=== PATIENT | female | born 1960 | race Caucasian/White ===

== ENCOUNTER 2021-04-23 22:04 | Inpatient (IN) | payer MEDICARE, MEDICAID ==
[~2021-04-23] VITALS: Ht 170.2 cm; Wt 97.7 kg
[2021-04-24 00:44] LABS: PLATELET COUNT 166 X10'3 (140-440)
[2021-04-24 00:46] LABS: BASOPHILS % (AUTO) 0.3 % (0-1); EOSINOPHILS % (AUTO) 0 % (0-6); HEMOGLOBIN 9.9 g/dl (12.0-16.0); LYMPHOCYTES # (AUTO) 0.2 X10'3 (1.1-4.8); LYMPHOCYTES % (AUTO) 3.8 % (21-51); MEAN CORPUSCULAR HEMOGLOBIN 31.3 PG (27.0-31.0); MEAN CORPUSCULAR HGB CONC 33.1 g/dL (33.0-36.5); MEAN CORPUSCULAR VOLUME 94.5 FL (78-98); MEAN PLATELET VOLUME 7.9 FL (7.4-10.4); MONOCYTES # (AUTO) 0.2 X10'3 (0-0.9); NEUTROPHILS # (AUTO) 5.5 X10'3 (1.8-7.7); NEUTROPHILS % (AUTO) 91.9 % (42-75); RED BLOOD COUNT 3.17 X10'6 (4.20-5.60); RED CELL DISTRIBUTION WIDTH 17.4 % (11.5-14.5)
[2021-04-24 00:53] LABS: ALBUMIN 2.3 G/DL (3.4-5.0); ANION GAP 21 (8-16); BLOOD UREA NITROGEN 62 MG/DL (7-18); BUN/CREATININE RATIO 6.7 (6.6-38.0); CALCIUM 7.1 MG/DL (8.5-10.1); CHLORIDE 87 MMOL/L (99-107); CREATININE 9.31 MG/DL (0.40-0.90); GLUCOSE 136 MG/DL (70-104); SODIUM 128 MMOL/L (135-145); TOTAL CARBON DIOXIDE 19.7 MMOL/L (24-32); eGFR 4 ML/MIN
[2021-04-24 01:00] LABS: D-DIMER 0.77 MG/L FEU (0-0.50)
[2021-04-24 01:10] LABS: C-REACTIVE PROTEIN 33.01 MG/DL (0.0-0.5)
[2021-04-24 01:13] LABS: POTASSIUM 6.6 MMOL/L (3.5-5.1)
[2021-04-24] MEDS ORDERED: diphenhydrAMINE 25mg capsule PO PRN (02:05)
[2021-04-24] MEDS ORDERED: ondansetron/PF 4mg/2ml inj IV PRN (02:05)
[2021-04-24] MEDS ORDERED: diphenhydrAMINE 50 mg/ml inj IV PRN (02:05)
[2021-04-24] MEDS ORDERED: ondansetron 4mg rapidly disintigrating tab PO PRN (02:05)
[2021-04-24] MEDS ORDERED: acetaminophen 650mg rectal suppository RC PRN (02:05)
[2021-04-24] MEDS ORDERED: morphine 2 MG/ML inj. syringe IV PRN (02:05)
[2021-04-24] MEDS ORDERED: bisacodyl 10mg suppository rectal RC PRN (02:05)
[2021-04-24] MEDS ORDERED: acetaminophen 325mg tablet PO PRN ×2 (02:05)
[2021-04-24] MEDS ORDERED: dextrose ORAL solution 15 GM/59 ML bottle PO PRN (02:10)
[2021-04-24] MEDS ORDERED: MESSAGE TO PHARMACY PO ONE (02:10)
[2021-04-24] MEDS ORDERED: ALBUTEROL INHALER 1 PUFF/90 MCG INHALER IH PRN (02:10)
[2021-04-24] MEDS ORDERED: dextrose 50%-water 50ml dispensing syringe IV ONE (02:10)
[2021-04-24] MEDS ORDERED: dextrose 50%-water 50ml dispensing syringe IV PRN ×2 (02:10)
[2021-04-24] MEDS ORDERED: CALCIUM GLUC 1gm/50ml NACL,iso 50 ML IV PRN (02:10)
[2021-04-24] MEDS ORDERED: insulin regular, human 10 units/0.1 ml syringe IV ONE (02:10)
[2021-04-24] MEDS ORDERED: glucagon, human recombinant 1mg kit SUBCUT PRN (02:10)
[2021-04-24] MEDS: normal saline 1000ml 1,000 ML IV SCH ×3 (02:59→22:05)
[2021-04-24 03:20] VITALS: BP 151/83
[2021-04-24 03:31] LABS: HEMOGLOBIN A1C 7.5 % (4.5-6.2)
[2021-04-24 03:36] LABS: MAGNESIUM 2.9 MG/DL (1.5-2.4); PHOSPHORUS 8.6 MG/DL (2.3-4.5)
--- NOTE | 2021-04-24 03:49 | NUR ---
RC'D REPORT FROM MIGUE CHIANG, RN AND ASSUMED CARE WHEN PATIENT ARRIVED ON THE FLOOR VIA GURNEY. TRANSFERRED HERSELF INTO THE BED. NOTED LLE IN WALKING CAST D/T FALL AND SURG THIS LAST WEEK. 4L N/C , SATS 94%. EDUCATED RETREADER LIGHT SYSTEM AND WITHIN REACH.
[2021-04-24 06:00] VITALS: BP 127/61
--- NOTE | 2021-04-24 06:31 | NUR ---
Problems reprioritized. Patient report given, questions answered & plan of care reviewed with EARLY SHIFT RN..
[2021-04-24] MEDS: dexamethasone 4mg/ml inj IV SCH ×3 (07:20→20:59)
[2021-04-24] MEDS: pantoprazole 40mg Tablet.DR PO SCH (07:20)
[2021-04-24] MEDS: enoxaparin 40mg/0.4ml syringe SUBCUT SCH ×2 (07:21→20:59)
[2021-04-24] MEDS ORDERED: SEVE800T8 PO (07:53)
[2021-04-24] MEDS ORDERED: ROSU10TA2 PO (07:53)
[2021-04-24] MEDS ORDERED: HYDR-3965 PO (07:53)
[2021-04-24] MEDS ORDERED: OMEP20TA23 PO (07:53)
[2021-04-24] MEDS ORDERED: CARV3.122 PO (07:53)
[2021-04-24] MEDS ORDERED: PROM25TA14 PO (07:53)
[2021-04-24] MEDS ORDERED: GLYB5TAB7 PO (07:53)
[2021-04-24] MEDS ORDERED: ALBU18HF2 INH (07:53)
[2021-04-24] MEDS ORDERED: TEMA15CA PO (07:53)
[2021-04-24] MEDS ORDERED: GABA300C PO (07:53)
[2021-04-24] MEDS ORDERED: ASPI-1265 PO (07:53)
[2021-04-24] MEDS ORDERED: LORA10TA7 PO (07:53)
[2021-04-24] MEDS ORDERED: CALC0.2511 PO (07:53)
[2021-04-24] MEDS ORDERED: WARF-65 PO (07:53)
[2021-04-24] MEDS ORDERED: DULO-31 PO (07:53)
[2021-04-24] MEDS ORDERED: FLUO20CA39 PO (07:53)
[2021-04-24] MEDS: docusate sod 100mg capsule PO SCH ×2 (08:00→20:00)
[2021-04-24] MEDS: CefTRIAXone/D5W-Rocephin 1gm 50 ML IV SCH (08:28)
[2021-04-24] MEDS: azithromycin/NS 500mg/250ml 250 ML IV SCH (08:28)
[2021-04-24 09:09] LABS: PARTIAL THROMBOPLASTIN TIME 107 SECONDS (22-32)
--- NOTE | 2021-04-24 09:10 | NUR ---
PAGER ID: [phone] MESSAGE: Armida Mendenhall [phone]: PTT [phone]
[2021-04-24 10:00] VITALS: BP 137/85
[2021-04-24] MEDS ORDERED: FLU VACC QS2021-22(6MOS UP)/PF 60 MCG/0.5 ML SYRINGE IM ONE (10:00)
[2021-04-24] MEDS ORDERED: pneumococcal 23-VAL P-sac vacc 25 mcg/0.5ml vial IMVAC ONE (10:00)
--- NOTE | 2021-04-24 10:41 | NUR ---
Pt admit for bilateral PNA secondary to COVID-19 and acute respiratory failure with hypoxia. Noted pt with A1c 7.5%, per EMR with h/o "prediabetes" and takes Glyburide. Pt will need official DM dx by physician prior to RD being able to provide DM education. Attempted TC to RN however RN unavailable, message left with another RN regarding current A1c. Pt currently NPO. Recommend diet advancement to renal CHO controlled as medically indicated. [facility] 04/23. Will continue to follow closely. Recommendations: 1) Advance to renal CHO controlled diet as medically indicated; only renal diet if BG levels well controlled, current range 136-165 mg/dL 2) Monitor need for ONS/additional protein with diet advancement 3) Bowel care per rx 4) Scaled weight this admit; weekly scaled weights thereafter 5) Once pt stable, DM education following official DM dx by physician, A1c 7.5% with [facility] "prediabetes". Takes Glyburide per EMR Addendum: 04/24/21 at [address] Amended: Links added.
--- NOTE | 2021-04-24 12:00 | NUR ---
Dr Abarca notified that the patient is supposed to recieve dialysis today
[2021-04-24] MEDS: insulin Lispro (HumaLOG) vial - multi-dose SQ SCH (13:41)
[2021-04-24 14:00] VITALS: BP 138/79
--- NOTE | 2021-04-24 17:02 | NUR ---
PAGER ID: [phone] MESSAGE: [phone] Armida Mendenhall: Patient has coughed up bloody sputum 3x in the last hour with increased shortness of breath
[2021-04-24] MEDS ORDERED: EPOETIN ALFA-EPBX 20,000 UNIT/ML 1 ML MDV IV ONE (17:25)
[2021-04-24] MEDS ORDERED: normal saline 1000ml 250 ML IV PRN (17:25)
[2021-04-24] MEDS: HYDROcodone/acetaminophen 10/325mg tab PO PRN (17:25)
[2021-04-24] MEDS ORDERED: heparin 1,000 units/ml 10ml inj IV ONE (17:25)
[2021-04-24] MEDS ORDERED: LIDOcaine 1% (10mg/ml) 2ml vial SQ ONE (17:25)
[2021-04-24 17:54] LABS: HEMATOCRIT 30.3 % (35.0-45.0); HEMOGLOBIN 9.8 g/dl (12.0-16.0); MEAN CORPUSCULAR HEMOGLOBIN 30.3 PG (27.0-31.0); MEAN CORPUSCULAR HGB CONC 32.3 g/dL (33.0-36.5); MEAN PLATELET VOLUME 7.9 FL (7.4-10.4); PLATELET COUNT 180 X10'3 (140-440); RED BLOOD COUNT 3.22 X10'6 (4.20-5.60); RED CELL DISTRIBUTION WIDTH 17.9 % (11.5-14.5)
[2021-04-24 18:00] VITALS: BP 115/72
[2021-04-24] MEDS: morphine 2 MG/ML inj. syringe IV PRN (18:31)
[2021-04-24] MEDS: lactobacillus rhamnosus 10,000 MMU CELLS/CAPSULE PO SCH (20:59)
[2021-04-24] MEDS: insulin glargine (Lantus) pen - multi-dose SQ SCH (21:00)
[2021-04-24 22:00] VITALS: BP 110/65
[2021-04-24] MEDS ORDERED: diltiazem 5mg/ml 5ml inj. IV ONE (23:30)
[2021-04-25] MEDS: temazepam 15mg capsule PO PRN (01:20)
[2021-04-25] MEDS: morphine 2 MG/ML inj. syringe IV PRN ×2 (01:20→22:36)
[2021-04-25 01:25] LABS: ALANINE AMINOTRANSFERASE 19 U/L (12-78); ALBUMIN 2.6 G/DL (3.4-5.0); ALBUMIN/GLOBULIN RATIO 0.5 (1.1-1.5); ALKALINE PHOSPHATASE 126 IU/L (46-116); ANION GAP 17 (8-16); ASPARTATE AMINO TRANSFERASE 27 U/L (10-37); BILIRUBIN,TOTAL 0.4 MG/DL (0.1-1.0); BLOOD UREA NITROGEN 19 MG/DL (7-18); BUN/CREATININE RATIO 6.3 (6.6-38.0); CALCIUM 8.5 MG/DL (8.5-10.1); CHLORIDE 97 MMOL/L (99-107); CHOL/HDL RATIO 2.9 (0.00-4.99); CHOLESTEROL 128 MG/DL (0-200); GLUCOSE 134 MG/DL (70-104); HDL CHOLESTEROL 44 MG/DL (35-60); LDL CHOLESTEROL 48 MG/DL (50-100); POTASSIUM 3.7 MMOL/L (3.5-5.1); SODIUM 139 MMOL/L (135-145); TOTAL CARBON DIOXIDE 24.8 MMOL/L (24-32); TOTAL PROTEIN 7.4 G/DL (6.4-8.2); TRIGLYCERIDES 185 MG/DL (20-135); eGFR 16 ML/MIN
[2021-04-25 01:27] VITALS: BP 94/64
[2021-04-25] MEDS ORDERED: diltiazem 5mg/ml 5ml inj. IV ONE (01:40)
[2021-04-25 02:00] VITALS: BP 85/56
[2021-04-25] MEDS: normal saline 1000ml 1,000 ML IV SCH (02:31)
[2021-04-25] MEDS: dexamethasone 4mg/ml inj IV SCH ×4 (02:47→20:27)
--- NOTE | 2021-04-25 06:15 | NUR ---
Problems reprioritized. Patient report given, questions answered & plan of care reviewed with Mariya VEGA.
--- NOTE | 2021-04-25 06:37 | NUR ---
Patient in room ORTHO 4009. I have received report from Marni VEGA and had the opportunity to ask questions and assume patient care.
[2021-04-25 06:56] VITALS: BP 117/57
--- NOTE | 2021-04-25 07:04 | NUR ---
PAGER ID: [phone] MESSAGE: [phone], Mendenhall please address patients med rec, was admitted 04/24 and takes cardiac medications; went into afib with RVR last night and required cardizem iv push. Thanks hayley [phone]
[2021-04-25] MEDS: enoxaparin 40mg/0.4ml syringe SUBCUT SCH ×2 (07:17→20:00)
[2021-04-25] MEDS: CefTRIAXone/D5W-Rocephin 1gm 50 ML IV SCH (07:17)
[2021-04-25] MEDS: lactobacillus rhamnosus 10,000 MMU CELLS/CAPSULE PO SCH ×2 (07:18→20:27)
[2021-04-25] MEDS: pantoprazole 40mg Tablet.DR PO SCH (07:18)
[2021-04-25] MEDS: azithromycin/NS 500mg/250ml 250 ML IV SCH (07:18)
[2021-04-25] MEDS: docusate sod 100mg capsule PO SCH ×2 (07:28→20:00)
[2021-04-25 08:29] LABS: BASOPHILS % (AUTO) 0.1 % (0-1); EOSINOPHILS % (AUTO) 0 % (0-6); HEMATOCRIT 29.7 % (35.0-45.0); HEMOGLOBIN 9.4 g/dl (12.0-16.0); LYMPHOCYTES # (AUTO) 0.1 X10'3 (1.1-4.8); MEAN CORPUSCULAR HEMOGLOBIN 30.5 PG (27.0-31.0); MEAN CORPUSCULAR HGB CONC 31.7 g/dL (33.0-36.5); MEAN CORPUSCULAR VOLUME 96.2 FL (78-98); MEAN PLATELET VOLUME 8.1 FL (7.4-10.4); MONOCYTES # (AUTO) 0.3 X10'3 (0-0.9); MONOCYTES % (AUTO) 4.4 % (2-12); NEUTROPHILS # (AUTO) 5.3 X10'3 (1.8-7.7); NEUTROPHILS % (AUTO) 93.5 % (42-75); PLATELET COUNT 180 X10'3 (140-440); RED BLOOD COUNT 3.08 X10'6 (4.20-5.60); RED CELL DISTRIBUTION WIDTH 18.1 % (11.5-14.5); WHITE BLOOD COUNT 5.7 X10'3 (4.5-11.0)
[2021-04-25 08:39] LABS: D-DIMER 0.44 MG/L FEU (0-0.50)
[2021-04-25] MEDS: HYDROcodone/acetaminophen 5mg/325mg tablet PO PRN ×2 (09:13→14:00)
[2021-04-25] MEDS: insulin Lispro (HumaLOG) vial - multi-dose SQ SCH ×3 (09:21→20:45)
--- NOTE | 2021-04-25 10:33 | NUR ---
Hospitalist has been paged x2 regarding patients med rec that has yet to be addressed. Patient is on many important medications and has been admitted since 04/24.
[2021-04-25] MEDS ORDERED: ALBUTEROL INHALER 1 PUFF/90 MCG INHALER IH PRN (10:45)
[2021-04-25] MEDS ORDERED: aspirin 81mg tab.chew PO SCH (10:45)
[2021-04-25 11:45] VITALS: BP 110/67
[2021-04-25] MEDS: loratadine 10mg tablet PO SCH (14:00)
[2021-04-25] MEDS: FLUoxetine 20mg capsule PO SCH (14:00)
[2021-04-25] MEDS: gabapentin 300mg capsule PO SCH ×2 (14:00→20:27)
[2021-04-25] MEDS: proMETHazine 25mg tablet PO SCH ×2 (14:00→20:00)
[2021-04-25] MEDS: duloxetine 30mg CAPSULE.DR PO SCH (14:00)
[2021-04-25] MEDS: sevelamer carbonate 800mg tablet PO SCH (16:00)
--- NOTE | 2021-04-25 17:03 | NUR ---
PAGER ID: [phone] MESSAGE: [phone], Mendenhall patient just coughed up a quarter sized blood clot. Been receiving lovenox and coumadin to restart tonight chaparro hardy [phone]
--- NOTE | 2021-04-25 17:13 | NUR ---
PAGER ID: [phone] MESSAGE: [id number], coughed up 2 blood clots and a lot of blood tinged sputum, d dimer is fine but patient has not had a ct scan, don't know if you want one. hayley [phone]
--- NOTE | 2021-04-25 17:33 | NUR ---
PAGER ID: [phone] MESSAGE: [phone], Mendenhall CT is saying that we wont see clots on a ct scan without contrast and is suggesting a nuc med scan to evaluate for clots. hayley [phone]
[2021-04-25 18:00] VITALS: BP 94/66
--- NOTE | 2021-04-25 18:41 | NUR ---
Problems reprioritized. Patient report given, questions answered & plan of care reviewed with Stephanie VEGA.
[2021-04-25] MEDS ORDERED: HYDROcodone/acetaminophen 5mg/325mg tablet PO SCH (20:00)
[2021-04-25] MEDS: carVEDilol 3.125mg tablet PO SCH (20:27)
[2021-04-25 22:00] VITALS: BP 126/87
[2021-04-25] MEDS: insulin glargine (Lantus) pen - multi-dose SQ SCH (22:27)
--- NOTE | 2021-04-26 00:11 | NUR ---
REPORTING OFF RNLUIS ALBERTO OBTAINED A BLOODY SPUTUM SAMPLE AND TOOK IT TO THE LAB AT CHANGE OF SHIFT. RC'D CALL FROM LAB REQUESTING AN ORDER FOR CYTOLOGY SAMPLE LOOKED TO BE TISSUE. CALLED DR. GARCIA AT 2030 AND RC'D ORDER FOR CYTOLOGY. ALSO INFORMED HIM PATIENT IS CONTINUING TO HAVE BLOODY SPUTUM AND FROM HER NOSE. REQUESTING TO HOLD COUMADIN AND LOVENOX TONIGHT AND REC'D ORDER TO DO SO. INSULIN COVERAGE GIVEN LATE FOR DINNER BS, WILL CHECK HS BS IN A WHILE AND COVER WITH LANTUS ORDERED. GFR IS 16 SO ONLY HALF A DOSE OF 6 UNITS WILL BE GIVEN. NOTIFIED CT I WILL BE BRINGING PATIENT DOWN IN A W/C SOON FOR CHEST CT.
[2021-04-26] MEDS: HYDROcodone/acetaminophen 10/325mg tab PO PRN ×2 (00:53→17:16)
[2021-04-26] MEDS: temazepam 15mg capsule PO PRN (00:54)
[2021-04-26] MEDS: proMETHazine 25mg tablet PO SCH ×4 (02:00→22:04)
[2021-04-26] MEDS: dexamethasone 4mg/ml inj IV SCH ×4 (02:00→22:04)
[2021-04-26] MEDS ORDERED: oxymetazoline 15 ML nasal spray NS ONE (03:45)
[2021-04-26] MEDS ORDERED: phytonadione inj. 2 MG in normal saline 100ml IV soln 100 ML IV ONE (04:10)
[2021-04-26 05:24] LABS: ALANINE AMINOTRANSFERASE 13 U/L (12-78); ALBUMIN 2.2 G/DL (3.4-5.0); ALBUMIN/GLOBULIN RATIO 0.5 (1.1-1.5); ALKALINE PHOSPHATASE 101 IU/L (46-116); ANION GAP 12 (8-16); ASPARTATE AMINO TRANSFERASE 21 U/L (10-37); BILIRUBIN,TOTAL 0.3 MG/DL (0.1-1.0); BLOOD UREA NITROGEN 69 MG/DL (7-18); BUN/CREATININE RATIO 9.9 (6.6-38.0); CALCIUM 7.2 MG/DL (8.5-10.1); CHLORIDE 96 MMOL/L (99-107); CREATININE 6.97 MG/DL (0.40-0.90); GLUCOSE 246 MG/DL (70-104); POTASSIUM 5.7 MMOL/L (3.5-5.1); SODIUM 135 MMOL/L (135-145); TOTAL CARBON DIOXIDE 27.1 MMOL/L (24-32); TOTAL PROTEIN 6.4 G/DL (6.4-8.2); eGFR 6 ML/MIN
[2021-04-26 05:25] LABS: BASOPHILS % (AUTO) 0.1 % (0-1); EOSINOPHILS % (AUTO) 0 % (0-6); HEMOGLOBIN 8.7 g/dl (12.0-16.0); LYMPHOCYTES # (AUTO) 0.1 X10'3 (1.1-4.8); MEAN CORPUSCULAR HEMOGLOBIN 30.6 PG (27.0-31.0); MEAN CORPUSCULAR HGB CONC 32.3 g/dL (33.0-36.5); MEAN CORPUSCULAR VOLUME 94.6 FL (78-98); MEAN PLATELET VOLUME 8.1 FL (7.4-10.4); MONOCYTES # (AUTO) 0.2 X10'3 (0-0.9); NEUTROPHILS # (AUTO) 3.8 X10'3 (1.8-7.7); NEUTROPHILS % (AUTO) 91.9 % (42-75); PLATELET COUNT 197 X10'3 (140-440); RED BLOOD COUNT 2.85 X10'6 (4.20-5.60); RED CELL DISTRIBUTION WIDTH 17.9 % (11.5-14.5); WHITE BLOOD COUNT 4.1 X10'3 (4.5-11.0)
[2021-04-26 06:37] VITALS: BP 134/78
--- NOTE | 2021-04-26 06:53 | NUR ---
CONTINUED HAVING BLOODY SPUTUM AND NOSE BLEED, BUT IT DID SEEM TO SLOW DOWN FOR A PERIOD WHEN PATIENT WAS SLEEPING. PATIENT WOKE UP AND BROUGHT UP A VERY LARGE BLOODY CLOT FROM HER THROAT AND STATED "FEELS LIKE I HAVE MORE IN THERE". I CALLED DR. GARCIA ASKING HIM TO COME UP TO CHECK ON THIS PATIENT. HE HAD ME CALL THE MANAGER DECISION SUPPORT, DR. BENSON AND INFORM HIM OF WHAT WHAT HAPPENING WITH THIS PATIENT. DR. BENSON INFORMED ME THAT RADHA IS THE HOSPITALIST AND SHOULD DO HIS JOB AND TAKE CARE OF IT. PER DR. GARCIA, MATERIALS OBTAINED TO PACK THE PATIENT'S NOSE AFTER HE DETERMINED THE BLOOD IS ACTUALLY A NOSE BLEED. LABS ORDERED, SUCTION SET UP, PATIENT HAS HF N/C IN HER MOUTH BOTH NARES ARE PACKED TO STOP THE BLEEDING. INSTRUCTED TO LEAVE PACKING IN X24 HRS UNLESS OBVIOUS SIGNS OF BLEEDING ARE SEEN. TYPE AND SCREEN DONE WITH LABS AND 2 UNITS FFP AND VIT K ALSO ORDERED.
[2021-04-26] MEDS ORDERED: EPOETIN ALFA-EPBX 20,000 UNIT/ML 1 ML MDV IV ONE (07:25)
[2021-04-26] MEDS ORDERED: albumin (human) 25% 100ml IV 100 ML IV PRN (07:25)
[2021-04-26] MEDS: insulin Lispro (HumaLOG) vial - multi-dose SQ SCH (07:44)
[2021-04-26] MEDS: duloxetine 30mg CAPSULE.DR PO SCH (08:00)
[2021-04-26] MEDS: lactobacillus rhamnosus 10,000 MMU CELLS/CAPSULE PO SCH ×2 (08:00→22:04)
[2021-04-26] MEDS: FLUoxetine 20mg capsule PO SCH (08:00)
[2021-04-26] MEDS ORDERED: non-formulary drug (Omeprazole Magnesium (Prilosec Otc) 1 TAB) PO SCH (08:00)
[2021-04-26] MEDS ORDERED: non-formulary drug (Glyburide 1 TAB) PO SCH (08:00)
[2021-04-26] MEDS ORDERED: WARFARIN SODIUM PO SCH (08:00)
[2021-04-26] MEDS: atorvastatin 20mg tablet PO SCH (08:00)
[2021-04-26] MEDS: carVEDilol 3.125mg tablet PO SCH ×2 (08:00→22:04)
[2021-04-26] MEDS: loratadine 10mg tablet PO SCH (08:00)
[2021-04-26] MEDS: sevelamer carbonate 800mg tablet PO SCH ×3 (08:00→16:16)
[2021-04-26] MEDS: gabapentin 300mg capsule PO SCH ×2 (08:00→14:17)
[2021-04-26] MEDS: calcitriol 0.25mcg capsule PO SCH (08:00)
[2021-04-26] MEDS: docusate sod 100mg capsule PO SCH ×2 (08:00→20:00)
[2021-04-26 11:00] LABS: HEMOGLOBIN 8.9 g/dl (12.0-16.0); MEAN CORPUSCULAR HEMOGLOBIN 30.2 PG (27.0-31.0); MEAN CORPUSCULAR HGB CONC 31.9 g/dL (33.0-36.5); MEAN CORPUSCULAR VOLUME 94.8 FL (78-98); MEAN PLATELET VOLUME 8.1 FL (7.4-10.4); PLATELET COUNT 233 X10'3 (140-440); RED BLOOD COUNT 2.96 X10'6 (4.20-5.60); RED CELL DISTRIBUTION WIDTH 17.8 % (11.5-14.5); WHITE BLOOD COUNT 6.6 X10'3 (4.5-11.0)
--- NOTE | 2021-04-26 11:14 | NUR ---
FFP started on patient, 2 RN verification completed. Recorded on down time paper work.
[2021-04-26 12:00] VITALS: BP 128/83
[2021-04-26] MEDS: pantoprazole 40mg Tablet.DR PO SCH (12:04)
[2021-04-26] MEDS: CefTRIAXone/D5W-Rocephin 1gm 50 ML IV SCH (13:31)
[2021-04-26] MEDS: azithromycin/NS 500mg/250ml 250 ML IV SCH (14:10)
--- NOTE | 2021-04-26 14:13 | NUR ---
Medications were NOC shift medications. Not given by day shift. EMAR hygiene
--- NOTE | 2021-04-26 14:21 | NUR ---
Decrodon not given at 0800, patient getting Vit. K for INR of 3.9, and 2 units FFP.
[2021-04-26 15:35] LABS: HEMATOCRIT 27.2 % (35.0-45.0); HEMOGLOBIN 8.7 g/dl (12.0-16.0); MEAN CORPUSCULAR HEMOGLOBIN 30.4 PG (27.0-31.0); MEAN CORPUSCULAR HGB CONC 31.9 g/dL (33.0-36.5); MEAN CORPUSCULAR VOLUME 95.4 FL (78-98); MEAN PLATELET VOLUME 8.2 FL (7.4-10.4); PLATELET COUNT 223 X10'3 (140-440); RED BLOOD COUNT 2.85 X10'6 (4.20-5.60); RED CELL DISTRIBUTION WIDTH 17.6 % (11.5-14.5); WHITE BLOOD COUNT 7.4 X10'3 (4.5-11.0)
--- NOTE | 2021-04-26 15:53 | NUR ---
Requested Decadron from pharmacy, not on unit
[2021-04-26] MEDS ORDERED: LIDOcaine 1% (10mg/ml) 2ml vial SQ ONE (16:30)
--- NOTE | 2021-04-26 17:47 | NUR ---
mike Cabrera from pharmacy.
--- NOTE | 2021-04-26 18:19 | NUR ---
Problems reprioritized. Patient report given, questions answered & plan of care reviewed with Pratima VEGA.
[2021-04-26 20:35] LABS: HEMATOCRIT 26.3 % (35.0-45.0); HEMOGLOBIN 8.5 g/dl (12.0-16.0); MEAN CORPUSCULAR HEMOGLOBIN 30.7 PG (27.0-31.0); MEAN CORPUSCULAR HGB CONC 32.3 g/dL (33.0-36.5); MEAN CORPUSCULAR VOLUME 94.9 FL (78-98); PLATELET COUNT 224 X10'3 (140-440); RED BLOOD COUNT 2.77 X10'6 (4.20-5.60); RED CELL DISTRIBUTION WIDTH 17.9 % (11.5-14.5)
[2021-04-26] MEDS: SODIUM ZIRCONIUM CYCLOSILICATE 10 GM POWD.PACK PO SCH ×2 (21:00→22:04)
[2021-04-26 22:00] VITALS: BP 188/93
[2021-04-26] MEDS: insulin glargine (Lantus) pen - multi-dose SQ SCH (22:02)
[2021-04-27 00:08] LABS: HEMATOCRIT 25.3 % (35.0-45.0); HEMOGLOBIN 8.3 g/dl (12.0-16.0); MEAN CORPUSCULAR HGB CONC 32.6 g/dL (33.0-36.5); MEAN CORPUSCULAR VOLUME 95.1 FL (78-98); PLATELET COUNT 209 X10'3 (140-440); RED BLOOD COUNT 2.66 X10'6 (4.20-5.60); RED CELL DISTRIBUTION WIDTH 17.3 % (11.5-14.5); WHITE BLOOD COUNT 7.5 X10'3 (4.5-11.0)
[2021-04-27] MEDS: sevelamer carbonate 800mg tablet PO SCH ×3 (01:45→15:45)
[2021-04-27 02:00] VITALS: BP 145/81
[2021-04-27] MEDS: proMETHazine 25mg tablet PO SCH ×4 (02:00→21:01)
[2021-04-27 03:57] LABS: BASOPHILS % (AUTO) 0 % (0-1); EOSINOPHILS % (AUTO) 0 % (0-6); HEMATOCRIT 24.4 % (35.0-45.0); LYMPHOCYTES # (AUTO) 0.1 X10'3 (1.1-4.8); LYMPHOCYTES % (AUTO) 1.8 % (21-51); MEAN CORPUSCULAR HEMOGLOBIN 30.9 PG (27.0-31.0); MEAN CORPUSCULAR HGB CONC 32.6 g/dL (33.0-36.5); MEAN CORPUSCULAR VOLUME 94.6 FL (78-98); MEAN PLATELET VOLUME 7.9 FL (7.4-10.4); MONOCYTES # (AUTO) 0.3 X10'3 (0-0.9); MONOCYTES % (AUTO) 4.2 % (2-12); NEUTROPHILS # (AUTO) 7.5 X10'3 (1.8-7.7); PLATELET COUNT 216 X10'3 (140-440); RED BLOOD COUNT 2.58 X10'6 (4.20-5.60); RED CELL DISTRIBUTION WIDTH 17.8 % (11.5-14.5)
[2021-04-27 04:13] LABS: ALANINE AMINOTRANSFERASE 12 U/L (12-78); ALBUMIN 2.3 G/DL (3.4-5.0); ALBUMIN/GLOBULIN RATIO 0.5 (1.1-1.5); ALKALINE PHOSPHATASE 94 IU/L (46-116); ANION GAP 16 (8-16); ASPARTATE AMINO TRANSFERASE 15 U/L (10-37); BILIRUBIN,TOTAL 0.5 MG/DL (0.1-1.0); BLOOD UREA NITROGEN 96 MG/DL (7-18); BUN/CREATININE RATIO 11.7 (6.6-38.0); CALCIUM 7.2 MG/DL (8.5-10.1); CHLORIDE 94 MMOL/L (99-107); CREATININE 8.21 MG/DL (0.40-0.90); GLUCOSE 294 MG/DL (70-104); POTASSIUM 5.9 MMOL/L (3.5-5.1); SODIUM 132 MMOL/L (135-145); TOTAL CARBON DIOXIDE 21.7 MMOL/L (24-32); TOTAL PROTEIN 6.7 G/DL (6.4-8.2); eGFR 5 ML/MIN
[2021-04-27] MEDS: dexamethasone 4mg/ml inj IV SCH ×4 (04:43→21:01)
--- NOTE | 2021-04-27 04:59 | NUR ---
NOTED BLEEDING FROM PATIENTS MOUTH AND COUGHING CLOTS AT THE BEGINNING OF MY SHIFT. APPROX 0200 THE BLEEDING SEEMED TO STOP AND PATIENT REPORTED SHE DIDNT FEEL ANY MORE BLOOD AT THE BACK OF HER THROAT. 0445 ROUNDED ON PATIENT TO FIND SHE HAD TAKEN OUT THE RHINO ROCKETS PLACED BY DR GARCIA 04/26 AT 0400. WILL CLOSELY MONITOR FOR BLEEDING.
[2021-04-27 06:30] VITALS: BP 142/87
[2021-04-27 07:54] LABS: HEMATOCRIT 24.3 % (35.0-45.0); HEMOGLOBIN 8.1 g/dl (12.0-16.0); MEAN CORPUSCULAR HEMOGLOBIN 31.1 PG (27.0-31.0); MEAN CORPUSCULAR HGB CONC 33.1 g/dL (33.0-36.5); MEAN CORPUSCULAR VOLUME 93.9 FL (78-98); MEAN PLATELET VOLUME 8.3 FL (7.4-10.4); PLATELET COUNT 222 X10'3 (140-440); RED BLOOD COUNT 2.59 X10'6 (4.20-5.60); RED CELL DISTRIBUTION WIDTH 17.5 % (11.5-14.5)
[2021-04-27] MEDS ORDERED: LIDOcaine 1% (10mg/ml) 2ml vial SQ ONE (08:00)
[2021-04-27] MEDS: docusate sod 100mg capsule PO SCH ×2 (08:04→21:01)
[2021-04-27] MEDS: loratadine 10mg tablet PO SCH (08:04)
[2021-04-27] MEDS: atorvastatin 20mg tablet PO SCH (08:04)
[2021-04-27] MEDS: pantoprazole 40mg Tablet.DR PO SCH (08:04)
[2021-04-27] MEDS: duloxetine 30mg CAPSULE.DR PO SCH (08:04)
[2021-04-27] MEDS: CefTRIAXone/D5W-Rocephin 1gm 50 ML IV SCH (08:04)
[2021-04-27] MEDS: FLUoxetine 20mg capsule PO SCH (08:04)
[2021-04-27] MEDS: lactobacillus rhamnosus 10,000 MMU CELLS/CAPSULE PO SCH ×2 (08:04→21:01)
[2021-04-27] MEDS: carVEDilol 3.125mg tablet PO SCH ×2 (08:04→21:01)
[2021-04-27] MEDS: gabapentin 300mg capsule PO SCH (08:04)
[2021-04-27] MEDS: calcitriol 0.25mcg capsule PO SCH (08:04)
[2021-04-27] MEDS: SODIUM ZIRCONIUM CYCLOSILICATE 10 GM POWD.PACK PO SCH ×3 (08:05→21:01)
[2021-04-27] MEDS: azithromycin/NS 500mg/250ml 250 ML IV SCH (08:28)
[2021-04-27 10:00] VITALS: BP 118/63
[2021-04-27] MEDS ORDERED: albumin (human) 25% 100ml IV 100 ML IV PRN (10:15)
[2021-04-27] MEDS ORDERED: EPOETIN ALFA-EPBX 20,000 UNIT/ML 1 ML MDV IV ONE (10:15)
[2021-04-27 11:38] LABS: HEMATOCRIT 24.3 % (35.0-45.0); HEMOGLOBIN 7.8 g/dl (12.0-16.0); MEAN CORPUSCULAR HEMOGLOBIN 30.6 PG (27.0-31.0); MEAN CORPUSCULAR HGB CONC 32.2 g/dL (33.0-36.5); MEAN PLATELET VOLUME 8.1 FL (7.4-10.4); PLATELET COUNT 192 X10'3 (140-440); RED BLOOD COUNT 2.55 X10'6 (4.20-5.60); RED CELL DISTRIBUTION WIDTH 17.4 % (11.5-14.5)
--- NOTE | 2021-04-27 12:17 | NUR ---
Reassessment: Pt advanced to renal diet PO mostly 0% or refusing meals w/ nausea present initial 2 out of 3.5 days this admit not meeting needs. Noted Glu 279-294mg/dl on glycemic protocol w/ no PO intake and last Phos 8.6 04/24 receiving routine renvela per EMR. RD d/w RN regarding A1C 7.5 only hx "prediabetes" though takes Glyburide at home; would benefit from DM DX by MD if new DM DX this admit. RN reports pt okay to talk to at this time; RD attempted to contact pt via TC regarding PO trends however no answer. Noted LBM 04/23 receiving routine colace; may benefit from additional bowel care this admit. Initial nausea and current constipation likely to impact PO trends. IF PO acceptance improves would benefit from ONS to assist meeting needs on HD. Will continue to monitor for PO trends/acceptance this admit. Recommendations: 1) Continue renal diet per MD; hold carb controlled restriction given PO 0% most meals; encourage PO 2) IF PO acceptance improves; Nepro TIDWM for additional kcals/protein 3) routine bowel care; consider additional w/ 4 days constipation 4) Scaled weight this admit; subsequent scaled wts w/ HD 5) DM education following official DM dx by physician, A1c 7.5% with H "prediabetes" takes Glyburide per EMR Addendum: 04/27/21 at [address] Amended: Links added.
[2021-04-27 13:20] LABS: HBSAG SCREEN Negative (Negative)
[2021-04-27] MEDS: insulin Lispro (HumaLOG) vial - multi-dose SQ SCH (13:22)
--- NOTE | 2021-04-27 14:47 | NUR ---
PAGED DR DICKERSON RE: PAGER ID: [phone] MESSAGE: ALEX MOSES. CONVERTED INTO AFIB HR 120-130. ON DIALYSIS NOW. STEVE [phone]
[2021-04-27 14:55] LABS: HEMATOCRIT 24.9 % (35.0-45.0); HEMOGLOBIN 8.3 g/dl (12.0-16.0); MEAN CORPUSCULAR HEMOGLOBIN 30.8 PG (27.0-31.0); MEAN CORPUSCULAR HGB CONC 33.4 g/dL (33.0-36.5); MEAN CORPUSCULAR VOLUME 92.3 FL (78-98); MEAN PLATELET VOLUME 8.2 FL (7.4-10.4); PLATELET COUNT 275 X10'3 (140-440); RED CELL DISTRIBUTION WIDTH 17.5 % (11.5-14.5); WHITE BLOOD COUNT 5.5 X10'3 (4.5-11.0)
[2021-04-27] MEDS ORDERED: carVEDilol 3.125mg tablet PO ONE (15:05)
[2021-04-27 15:07] VITALS: BP 108/61
[2021-04-27 18:00] VITALS: BP 118/63
--- NOTE | 2021-04-27 18:14 | NUR ---
Problems reprioritized. Patient report given, questions answered & plan of care reviewed with ELLIOTT VEGA.
[2021-04-27 20:40] LABS: HEMATOCRIT 27.7 % (35.0-45.0); HEMOGLOBIN 8.8 g/dl (12.0-16.0); MEAN CORPUSCULAR HEMOGLOBIN 30.3 PG (27.0-31.0); MEAN CORPUSCULAR HGB CONC 31.9 g/dL (33.0-36.5); MEAN CORPUSCULAR VOLUME 94.7 FL (78-98); MEAN PLATELET VOLUME 8.3 FL (7.4-10.4); PLATELET COUNT 250 X10'3 (140-440); RED BLOOD COUNT 2.92 X10'6 (4.20-5.60); RED CELL DISTRIBUTION WIDTH 17.6 % (11.5-14.5); WHITE BLOOD COUNT 6.8 X10'3 (4.5-11.0)
[2021-04-27] MEDS ORDERED: warfarin 5mg tablet PO ONE (21:00)
[2021-04-27] MEDS: insulin glargine (Lantus) pen - multi-dose SQ SCH (21:00)
[2021-04-27 22:00] VITALS: BP 112/61
--- NOTE | 2021-04-27 23:12 | NUR ---
PATIENT DID NOT QUALIFY FOR POST PRANDIAL DINNER INSULIN. DID NOT EAT DINNER AND HER BLOOD SUGAR WAS 124. HER BLOOD SUGAR WAS 124 AGAIN AT 2100 AND REFUSED HER LANTUS. EDUCATED PATIENT ON HER HIGH AM BLOOD SUGARS.
[2021-04-27 23:14] LABS: HEMATOCRIT 26.3 % (35.0-45.0); HEMOGLOBIN 8.8 g/dl (12.0-16.0); MEAN CORPUSCULAR HEMOGLOBIN 31.1 PG (27.0-31.0); MEAN CORPUSCULAR HGB CONC 33.5 g/dL (33.0-36.5); MEAN CORPUSCULAR VOLUME 92.8 FL (78-98); MEAN PLATELET VOLUME 8.1 FL (7.4-10.4); PLATELET COUNT 211 X10'3 (140-440); RED BLOOD COUNT 2.83 X10'6 (4.20-5.60); RED CELL DISTRIBUTION WIDTH 17.3 % (11.5-14.5)
[2021-04-28] MEDS: sevelamer carbonate 800mg tablet PO SCH ×3 (00:13→17:23)
[2021-04-28 02:00] VITALS: BP 133/81
[2021-04-28] MEDS: proMETHazine 25mg tablet PO SCH ×4 (02:00→20:51)
[2021-04-28] MEDS: dexamethasone 4mg/ml inj IV SCH ×4 (02:00→20:51)
[2021-04-28 03:14] LABS: BASOPHILS % (AUTO) 0.2 % (0-1); EOSINOPHILS % (AUTO) 0.1 % (0-6); HEMATOCRIT 24.9 % (35.0-45.0); HEMOGLOBIN 8.1 g/dl (12.0-16.0); LYMPHOCYTES # (AUTO) 0.2 X10'3 (1.1-4.8); LYMPHOCYTES % (AUTO) 3.4 % (21-51); MEAN CORPUSCULAR HEMOGLOBIN 30.8 PG (27.0-31.0); MEAN CORPUSCULAR HGB CONC 32.6 g/dL (33.0-36.5); MEAN CORPUSCULAR VOLUME 94.4 FL (78-98); MEAN PLATELET VOLUME 8.1 FL (7.4-10.4); MONOCYTES # (AUTO) 0.3 X10'3 (0-0.9); MONOCYTES % (AUTO) 6.9 % (2-12); NEUTROPHILS % (AUTO) 89.4 % (42-75); PLATELET COUNT 205 X10'3 (140-440); RED BLOOD COUNT 2.64 X10'6 (4.20-5.60); RED CELL DISTRIBUTION WIDTH 17.5 % (11.5-14.5); WHITE BLOOD COUNT 4.5 X10'3 (4.5-11.0)
[2021-04-28 03:34] LABS: ALANINE AMINOTRANSFERASE 9 U/L (12-78); ALBUMIN 2.1 G/DL (3.4-5.0); ALBUMIN/GLOBULIN RATIO 0.5 (1.1-1.5); ALKALINE PHOSPHATASE 89 IU/L (46-116); ANION GAP 15 (8-16); ASPARTATE AMINO TRANSFERASE 15 U/L (10-37); BILIRUBIN,TOTAL 0.5 MG/DL (0.1-1.0); BLOOD UREA NITROGEN 61 MG/DL (7-18); BUN/CREATININE RATIO 11.2 (6.6-38.0); CALCIUM 7.8 MG/DL (8.5-10.1); CHLORIDE 99 MMOL/L (99-107); CREATININE 5.45 MG/DL (0.40-0.90); GLUCOSE 202 MG/DL (70-104); POTASSIUM 4.4 MMOL/L (3.5-5.1); SODIUM 137 MMOL/L (135-145); TOTAL CARBON DIOXIDE 23.5 MMOL/L (24-32); TOTAL PROTEIN 6.2 G/DL (6.4-8.2); eGFR 8 ML/MIN
[2021-04-28 06:20] VITALS: BP 137/76
--- NOTE | 2021-04-28 06:23 | NUR ---
Patient in room ORTHO 4009. I have received report from ELLIOTT VEGA and had the opportunity to ask questions and assume patient care.
[2021-04-28] MEDS: azithromycin/NS 500mg/250ml 250 ML IV SCH (07:39)
[2021-04-28] MEDS: carVEDilol 3.125mg tablet PO SCH ×2 (07:44→20:51)
[2021-04-28] MEDS: atorvastatin 20mg tablet PO SCH (07:44)
[2021-04-28] MEDS: lactobacillus rhamnosus 10,000 MMU CELLS/CAPSULE PO SCH ×2 (07:44→20:51)
[2021-04-28] MEDS: docusate sod 100mg capsule PO SCH ×2 (07:44→20:51)
[2021-04-28] MEDS: FLUoxetine 20mg capsule PO SCH (07:44)
[2021-04-28] MEDS: duloxetine 30mg CAPSULE.DR PO SCH (07:45)
[2021-04-28] MEDS: calcitriol 0.25mcg capsule PO SCH (07:45)
[2021-04-28] MEDS: loratadine 10mg tablet PO SCH (07:45)
[2021-04-28] MEDS: pantoprazole 40mg Tablet.DR PO SCH (07:45)
[2021-04-28] MEDS: gabapentin 300mg capsule PO SCH (07:45)
[2021-04-28] MEDS: SODIUM ZIRCONIUM CYCLOSILICATE 10 GM POWD.PACK PO SCH (07:46)
[2021-04-28 08:14] LABS: HEMATOCRIT 26.5 % (35.0-45.0); HEMOGLOBIN 8.5 g/dl (12.0-16.0); MEAN CORPUSCULAR HEMOGLOBIN 30.5 PG (27.0-31.0); MEAN CORPUSCULAR HGB CONC 32.1 g/dL (33.0-36.5); MEAN CORPUSCULAR VOLUME 94.8 FL (78-98); MEAN PLATELET VOLUME 8.2 FL (7.4-10.4); PLATELET COUNT 185 X10'3 (140-440); RED BLOOD COUNT 2.79 X10'6 (4.20-5.60); RED CELL DISTRIBUTION WIDTH 17.6 % (11.5-14.5); WHITE BLOOD COUNT 4.4 X10'3 (4.5-11.0)
[2021-04-28] MEDS: CefTRIAXone/D5W-Rocephin 1gm 50 ML IV SCH (09:35)
[2021-04-28] MEDS: insulin Lispro (HumaLOG) vial - multi-dose SQ SCH ×3 (09:37→19:46)
[2021-04-28 10:00] VITALS: BP 142/69
[2021-04-28 11:43] LABS: HEMATOCRIT 22.6 % (35.0-45.0); HEMOGLOBIN 7.3 g/dl (12.0-16.0); MEAN CORPUSCULAR HEMOGLOBIN 30.6 PG (27.0-31.0); MEAN CORPUSCULAR HGB CONC 32.6 g/dL (33.0-36.5); MEAN CORPUSCULAR VOLUME 93.9 FL (78-98); MEAN PLATELET VOLUME 8.2 FL (7.4-10.4); PLATELET COUNT 171 X10'3 (140-440); RED CELL DISTRIBUTION WIDTH 16.9 % (11.5-14.5); WHITE BLOOD COUNT 3.6 X10'3 (4.5-11.0)
--- NOTE | 2021-04-28 11:47 | NUR ---
F/u 04/28: HAWK caro/farooq RN regarding new DM this admit. RN reports asked pt about DM hx pt reporting "PCP says I have diabetic tendencies" but pt still unaware of new DM DX this admit. HAWK caro/farooq RN need pt to be aware of DM DX prior to RD ed this admit. Addendum: 04/28/21 at [address] Amended: Links added.
[2021-04-28 14:59] VITALS: BP 118/69
[2021-04-28 15:50] LABS: HEMATOCRIT 25.8 % (35.0-45.0); HEMOGLOBIN 8.4 g/dl (12.0-16.0); MEAN CORPUSCULAR HEMOGLOBIN 30.9 PG (27.0-31.0); MEAN CORPUSCULAR HGB CONC 32.7 g/dL (33.0-36.5); MEAN CORPUSCULAR VOLUME 94.5 FL (78-98); MEAN PLATELET VOLUME 8.3 FL (7.4-10.4); PLATELET COUNT 229 X10'3 (140-440); RED BLOOD COUNT 2.73 X10'6 (4.20-5.60); WHITE BLOOD COUNT 5.1 X10'3 (4.5-11.0)
[2021-04-28 18:00] VITALS: BP 143/75
--- NOTE | 2021-04-28 18:33 | NUR ---
Problems reprioritized. Patient report given, questions answered & plan of care reviewed with MUKUL VEGA.
[2021-04-28 19:30] LABS: HEMATOCRIT 26.4 % (35.0-45.0); HEMOGLOBIN 8.7 g/dl (12.0-16.0); MEAN CORPUSCULAR HEMOGLOBIN 30.8 PG (27.0-31.0); MEAN CORPUSCULAR HGB CONC 32.9 g/dL (33.0-36.5); MEAN CORPUSCULAR VOLUME 93.7 FL (78-98); MEAN PLATELET VOLUME 8.5 FL (7.4-10.4); PLATELET COUNT 221 X10'3 (140-440); RED BLOOD COUNT 2.82 X10'6 (4.20-5.60); RED CELL DISTRIBUTION WIDTH 17.2 % (11.5-14.5); WHITE BLOOD COUNT 5.5 X10'3 (4.5-11.0)
[2021-04-28] MEDS: mag hydrox/Alum hydrox/simeth 30ml oral suspension PO PRN (20:51)
[2021-04-28] MEDS: temazepam 15mg capsule PO PRN (20:51)
[2021-04-28] MEDS ORDERED: warfarin 5mg tablet PO ONE (21:00)
[2021-04-28 22:00] VITALS: BP 143/80
[2021-04-28] MEDS: insulin glargine (Lantus) pen - multi-dose SQ SCH (22:04)
[2021-04-29 02:00] VITALS: BP 146/80
[2021-04-29] MEDS: proMETHazine 25mg tablet PO SCH ×4 (02:55→20:18)
[2021-04-29] MEDS: dexamethasone 4mg/ml inj IV SCH ×4 (02:55→20:17)
[2021-04-29 06:00] VITALS: BP 148/83
--- NOTE | 2021-04-29 06:51 | NUR ---
Problems reprioritized. Patient report given, questions answered & plan of care reviewed with Tico VEGA.
[2021-04-29] MEDS ORDERED: EPOETIN ALFA-EPBX 20,000 UNIT/ML 1 ML MDV IV ONE (07:30)
[2021-04-29] MEDS ORDERED: albumin (human) 25% 100ml IV 100 ML IV PRN (07:30)
[2021-04-29 07:42] LABS: BASOPHILS % (AUTO) 0 % (0-1); EOSINOPHILS % (AUTO) 0 % (0-6); HEMATOCRIT 22.9 % (35.0-45.0); HEMOGLOBIN 7.7 g/dl (12.0-16.0); LYMPHOCYTES # (AUTO) 0.1 X10'3 (1.1-4.8); LYMPHOCYTES % (AUTO) 1.8 % (21-51); MEAN CORPUSCULAR HGB CONC 33.4 g/dL (33.0-36.5); MEAN CORPUSCULAR VOLUME 92.9 FL (78-98); MEAN PLATELET VOLUME 8.3 FL (7.4-10.4); MONOCYTES # (AUTO) 0.3 X10'3 (0-0.9); MONOCYTES % (AUTO) 5.5 % (2-12); NEUTROPHILS # (AUTO) 5.4 X10'3 (1.8-7.7); NEUTROPHILS % (AUTO) 92.7 % (42-75); PLATELET COUNT 201 X10'3 (140-440); RED BLOOD COUNT 2.47 X10'6 (4.20-5.60); RED CELL DISTRIBUTION WIDTH 17.1 % (11.5-14.5); WHITE BLOOD COUNT 5.8 X10'3 (4.5-11.0)
[2021-04-29 07:49] LABS: ALANINE AMINOTRANSFERASE 11 U/L (12-78); ALBUMIN 2.2 G/DL (3.4-5.0); ALBUMIN/GLOBULIN RATIO 0.6 (1.1-1.5); ALKALINE PHOSPHATASE 89 IU/L (46-116); ANION GAP 16 (8-16); ASPARTATE AMINO TRANSFERASE 12 U/L (10-37); BILIRUBIN,TOTAL 0.4 MG/DL (0.1-1.0); BLOOD UREA NITROGEN 92 MG/DL (7-18); BUN/CREATININE RATIO 12.9 (6.6-38.0); CALCIUM 7.5 MG/DL (8.5-10.1); CHLORIDE 98 MMOL/L (99-107); CREATININE 7.13 MG/DL (0.40-0.90); GLUCOSE 212 MG/DL (70-104); POTASSIUM 4.7 MMOL/L (3.5-5.1); SODIUM 140 MMOL/L (135-145); eGFR 6 ML/MIN
[2021-04-29] MEDS: gabapentin 300mg capsule PO SCH (08:08)
[2021-04-29] MEDS: lactobacillus rhamnosus 10,000 MMU CELLS/CAPSULE PO SCH ×2 (08:08→20:18)
[2021-04-29] MEDS: pantoprazole 40mg Tablet.DR PO SCH (08:08)
[2021-04-29] MEDS: duloxetine 30mg CAPSULE.DR PO SCH (08:08)
[2021-04-29] MEDS: loratadine 10mg tablet PO SCH (08:08)
[2021-04-29] MEDS: atorvastatin 20mg tablet PO SCH (08:08)
[2021-04-29] MEDS: calcitriol 0.25mcg capsule PO SCH (08:08)
[2021-04-29] MEDS: FLUoxetine 20mg capsule PO SCH (08:08)
[2021-04-29] MEDS: docusate sod 100mg capsule PO SCH ×2 (08:08→20:18)
[2021-04-29] MEDS: carVEDilol 3.125mg tablet PO SCH ×2 (08:08→20:18)
[2021-04-29] MEDS: azithromycin/NS 500mg/250ml 250 ML IV SCH (08:09)
[2021-04-29] MEDS: sevelamer carbonate 800mg tablet PO SCH ×3 (08:11→16:14)
[2021-04-29] MEDS: CefTRIAXone/D5W-Rocephin 1gm 50 ML IV SCH (08:11)
[2021-04-29 09:20] LABS: HEMATOCRIT 23.6 % (35.0-45.0); HEMOGLOBIN 7.7 g/dl (12.0-16.0); MEAN CORPUSCULAR HEMOGLOBIN 30.3 PG (27.0-31.0); MEAN CORPUSCULAR HGB CONC 32.4 g/dL (33.0-36.5); MEAN CORPUSCULAR VOLUME 93.7 FL (78-98); MEAN PLATELET VOLUME 8.7 FL (7.4-10.4); PLATELET COUNT 208 X10'3 (140-440); RED BLOOD COUNT 2.52 X10'6 (4.20-5.60); RED CELL DISTRIBUTION WIDTH 17.3 % (11.5-14.5); WHITE BLOOD COUNT 5.9 X10'3 (4.5-11.0)
[2021-04-29 09:45] LABS: % IRON SATURATION 21 % (11-46); IRON 44 UG/DL (49-151); TOTAL IRON BINDING CAPACITY 208 UG/DL (259-388)
[2021-04-29 10:00] VITALS: BP 132/69
[2021-04-29 10:02] LABS: FERRITIN 226 NG/ML (8-252)
[2021-04-29] MEDS: insulin Lispro (HumaLOG) vial - multi-dose SQ SCH ×2 (11:25→14:21)
[2021-04-29] MEDS: HYDROcodone/acetaminophen 10/325mg tab PO PRN (13:34)
[2021-04-29 14:00] VITALS: BP 129/80
[2021-04-29 18:00] VITALS: BP 147/80
[2021-04-29 18:05] LABS: HEMATOCRIT 25.1 % (35.0-45.0); HEMOGLOBIN 8.2 g/dl (12.0-16.0); MEAN CORPUSCULAR HEMOGLOBIN 30.5 PG (27.0-31.0); MEAN CORPUSCULAR HGB CONC 32.8 g/dL (33.0-36.5); MEAN CORPUSCULAR VOLUME 93.1 FL (78-98); MEAN PLATELET VOLUME 8.1 FL (7.4-10.4); PLATELET COUNT 237 X10'3 (140-440); RED BLOOD COUNT 2.69 X10'6 (4.20-5.60); RED CELL DISTRIBUTION WIDTH 17.1 % (11.5-14.5); WHITE BLOOD COUNT 6.6 X10'3 (4.5-11.0)
[2021-04-29] MEDS: temazepam 15mg capsule PO PRN (20:17)
[2021-04-29] MEDS ORDERED: warfarin 4mg tablet PO ONE (21:00)
[2021-04-29] MEDS: insulin glargine (Lantus) pen - multi-dose SQ SCH (21:31)
[2021-04-29 22:00] VITALS: BP 152/77
--- NOTE | 2021-04-30 01:03 | NUR ---
Pt refused 0000 Hemogram lab draw
[2021-04-30 02:00] VITALS: BP 134/81
[2021-04-30] MEDS: proMETHazine 25mg tablet PO SCH ×4 (02:58→20:13)
[2021-04-30] MEDS: dexamethasone 4mg/ml inj IV SCH ×4 (02:58→20:12)
[2021-04-30 05:00] VITALS: BP 141/72
--- NOTE | 2021-04-30 06:22 | NUR ---
Problems reprioritized. Patient report given, questions answered & plan of care reviewed with Tico VEGA .
[2021-04-30] MEDS: FLUoxetine 20mg capsule PO SCH (07:24)
[2021-04-30] MEDS: sevelamer carbonate 800mg tablet PO SCH ×3 (07:24→15:44)
[2021-04-30] MEDS: calcitriol 0.25mcg capsule PO SCH (07:24)
[2021-04-30] MEDS: lactobacillus rhamnosus 10,000 MMU CELLS/CAPSULE PO SCH ×2 (07:24→20:13)
[2021-04-30] MEDS: atorvastatin 20mg tablet PO SCH (07:25)
[2021-04-30] MEDS: pantoprazole 40mg Tablet.DR PO SCH (07:25)
[2021-04-30] MEDS: azithromycin 250mg tablet PO SCH (07:25)
[2021-04-30] MEDS: gabapentin 300mg capsule PO SCH (07:25)
[2021-04-30] MEDS: duloxetine 30mg CAPSULE.DR PO SCH (07:25)
[2021-04-30] MEDS: loratadine 10mg tablet PO SCH (07:25)
[2021-04-30] MEDS: docusate sod 100mg capsule PO SCH ×2 (07:25→20:13)
[2021-04-30] MEDS: carVEDilol 3.125mg tablet PO SCH ×2 (07:25→20:13)
[2021-04-30] MEDS: CefTRIAXone/D5W-Rocephin 1gm 50 ML IV SCH (07:25)
[2021-04-30 09:18] LABS: ALANINE AMINOTRANSFERASE 12 U/L (12-78); ALBUMIN 2.5 G/DL (3.4-5.0); ALBUMIN/GLOBULIN RATIO 0.6 (1.1-1.5); ALKALINE PHOSPHATASE 94 IU/L (46-116); ANION GAP 15 (8-16); ASPARTATE AMINO TRANSFERASE 17 U/L (10-37); BILIRUBIN,TOTAL 0.5 MG/DL (0.1-1.0); BLOOD UREA NITROGEN 67 MG/DL (7-18); BUN/CREATININE RATIO 11.5 (6.6-38.0); CALCIUM 7.9 MG/DL (8.5-10.1); CHLORIDE 98 MMOL/L (99-107); CREATININE 5.81 MG/DL (0.40-0.90); GLUCOSE 174 MG/DL (70-104); POTASSIUM 4.1 MMOL/L (3.5-5.1); SODIUM 139 MMOL/L (135-145); TOTAL CARBON DIOXIDE 26.3 MMOL/L (24-32); TOTAL PROTEIN 6.6 G/DL (6.4-8.2); eGFR 7 ML/MIN
[2021-04-30] MEDS: HYDROcodone/acetaminophen 10/325mg tab PO PRN ×2 (09:40→21:39)
[2021-04-30] MEDS: magnesium hydroxide 30ml (MOM) UD suspension PO PRN (09:41)
[2021-04-30] MEDS: insulin Lispro (HumaLOG) vial - multi-dose SQ SCH ×2 (09:50→13:40)
[2021-04-30 10:00] VITALS: BP 157/78
[2021-04-30] MEDS ORDERED: DEC4T PO (10:10)
--- NOTE | 2021-04-30 11:23 | NUR ---
O2 Sat at rest on room air:87___% If below 89%: Recovery O2 Sat at rest on __6_LPM:_95__%:___% via nc (mask/nasal cannula, etc..) No further documentation is necessary. If O2 Sat did not drop below 89% on room air,ambulate patient on room air. O2 Sat while ambulating on room air:___% Recovery O2 Sat while ambulating on ___LPM:___% No further documentation is necessary. If patient does not drop below 89% while ambulating, he/she does not qualify for home O2.
[2021-04-30 12:04] LABS: BASOPHILS # (AUTO) 0.1 X10'3 (0-0.2); BASOPHILS % (AUTO) 1.1 % (0-1); EOSINOPHILS % (AUTO) 0.2 % (0-6); HEMATOCRIT 23.7 % (35.0-45.0); HEMOGLOBIN 7.9 g/dl (12.0-16.0); LYMPHOCYTES # (AUTO) 0.2 X10'3 (1.1-4.8); LYMPHOCYTES % (AUTO) 2.1 % (21-51); MEAN CORPUSCULAR HEMOGLOBIN 31.2 PG (27.0-31.0); MEAN CORPUSCULAR HGB CONC 33.5 g/dL (33.0-36.5); MEAN CORPUSCULAR VOLUME 93.4 FL (78-98); MEAN PLATELET VOLUME 8.5 FL (7.4-10.4); MONOCYTES # (AUTO) 0.3 X10'3 (0-0.9); MONOCYTES % (AUTO) 4.4 % (2-12); NEUTROPHILS # (AUTO) 6.8 X10'3 (1.8-7.7); NEUTROPHILS % (AUTO) 92.2 % (42-75); PLATELET COUNT 203 X10'3 (140-440); RED BLOOD COUNT 2.54 X10'6 (4.20-5.60); RED CELL DISTRIBUTION WIDTH 16.8 % (11.5-14.5); WHITE BLOOD COUNT 7.4 X10'3 (4.5-11.0)
[2021-04-30 12:45] LABS: PLATELET ESTIMATE NORMAL
[2021-04-30 12:46] LABS: ANISOCYTOSIS 1+; ELLIPTOCYTES 1+; POLYCHROMASIA FEW; SCHISTOCYTES FEW; TEAR DROP CELLS FEW
[2021-04-30 14:00] VITALS: BP 132/74
--- NOTE | 2021-04-30 16:29 | NUR ---
F/u 04/30: Pt PO slight improvement 50% breakfast and lunch today up from prior 6 days 0% vs refusing meals. Noted epistaxis is much better now on 4L NC per EMR; hopefully to assist w/ future meals intake. Give initial 6 days almost no nutrition intake and mild weakness pt meets minimum non-severe malnutrition criteria; MD notified. RD recommends Nepro TIDWM to assist protein/kcal needs given DX on HD; MD notified. LBM 04/29. RD d/w RN regarding pt still unaware of DM DX at this time; requires physician DM DX prior to RD education. Will continue to monitor. Recommendations: 1) liberalize to regular diet given poor PO intake 6 days; encourage PO 2) Consider carb controlled/renal restrictions if PO consistently adequate 3) Nepro TIDWM for additional kcals/protein; pending MD verification in EMR 4) routine Phos checks on HD if MD agreeable; last 8.6 04/24 receiving routine renvela 5) routine bowel care 6) Scaled weight this admit; subsequent scaled wts w/ HD 7) DM education following official DM dx by physician, A1c 7.5% with [facility] "prediabetes" takes Glyburide per EMR 8) IF poor PO persists consider NG nutrition to optimize nutrition status on HD w/ COVID-19 Addendum: 04/30/21 at [address] Amended: Links added.
[2021-04-30 18:00] VITALS: BP 132/74
[2021-04-30] MEDS: NUT.TX.IMP.RENAL FXN,LAC-REDUC (Nepro) 237 ML VANILLA PO SCH ×2 (18:00→19:00)
[2021-04-30] MEDS ORDERED: warfarin 3mg tablet PO ONE (21:00)
[2021-04-30] MEDS: insulin glargine (Lantus) pen - multi-dose SQ SCH (21:32)
[2021-04-30] MEDS: temazepam 15mg capsule PO PRN (21:39)
[2021-04-30 22:00] VITALS: BP 163/83
[2021-05-01 02:00] VITALS: BP 138/67
[2021-05-01] MEDS: proMETHazine 25mg tablet PO SCH ×4 (02:00→21:31)
[2021-05-01] MEDS: dexamethasone 4mg/ml inj IV SCH ×4 (02:00→21:31)
[2021-05-01 06:00] VITALS: BP 140/68
[2021-05-01] MEDS: lactobacillus rhamnosus 10,000 MMU CELLS/CAPSULE PO SCH ×2 (08:00→21:31)
[2021-05-01] MEDS: carVEDilol 3.125mg tablet PO SCH ×2 (08:00→21:31)
[2021-05-01 08:29] LABS: BASOPHILS % (AUTO) 0.1 % (0-1); EOSINOPHILS # (AUTO) 0.1 X10'3 (0-0.9); EOSINOPHILS % (AUTO) 0.9 % (0-6); HEMATOCRIT 24.7 % (35.0-45.0); HEMOGLOBIN 8.1 g/dl (12.0-16.0); LYMPHOCYTES # (AUTO) 0.2 X10'3 (1.1-4.8); LYMPHOCYTES % (AUTO) 3.2 % (21-51); MEAN CORPUSCULAR HEMOGLOBIN 30.4 PG (27.0-31.0); MEAN CORPUSCULAR HGB CONC 32.7 g/dL (33.0-36.5); MEAN CORPUSCULAR VOLUME 92.8 FL (78-98); MEAN PLATELET VOLUME 8.7 FL (7.4-10.4); MONOCYTES # (AUTO) 0.5 X10'3 (0-0.9); MONOCYTES % (AUTO) 7.5 % (2-12); NEUTROPHILS # (AUTO) 6.1 X10'3 (1.8-7.7); NEUTROPHILS % (AUTO) 88.3 % (42-75); PLATELET COUNT 214 X10'3 (140-440); RED BLOOD COUNT 2.67 X10'6 (4.20-5.60); RED CELL DISTRIBUTION WIDTH 17.6 % (11.5-14.5); WHITE BLOOD COUNT 6.9 X10'3 (4.5-11.0)
[2021-05-01] MEDS ORDERED: albumin (human) 25% 100ml IV 100 ML IV PRN (08:40)
[2021-05-01] MEDS ORDERED: EPOETIN ALFA-EPBX 20,000 UNIT/ML 1 ML MDV IV ONE (08:40)
[2021-05-01 08:51] LABS: ALANINE AMINOTRANSFERASE 12 U/L (12-78); ALBUMIN 2.2 G/DL (3.4-5.0); ALBUMIN/GLOBULIN RATIO 0.6 (1.1-1.5); ANION GAP 12 (8-16); ASPARTATE AMINO TRANSFERASE 15 U/L (10-37); BILIRUBIN,TOTAL 0.4 MG/DL (0.1-1.0); BLOOD UREA NITROGEN 85 MG/DL (7-18); BUN/CREATININE RATIO 11.6 (6.6-38.0); CALCIUM 7.6 MG/DL (8.5-10.1); CHLORIDE 97 MMOL/L (99-107); GLUCOSE 112 MG/DL (70-104); POTASSIUM 3.9 MMOL/L (3.5-5.1); SODIUM 135 MMOL/L (135-145); TOTAL CARBON DIOXIDE 25.6 MMOL/L (24-32); TOTAL PROTEIN 5.8 G/DL (6.4-8.2); eGFR 6 ML/MIN
[2021-05-01] MEDS: azithromycin 250mg tablet PO SCH (09:02)
[2021-05-01] MEDS: docusate sod 100mg capsule PO SCH ×2 (09:02→21:31)
[2021-05-01] MEDS: atorvastatin 20mg tablet PO SCH (09:02)
[2021-05-01] MEDS: FLUoxetine 20mg capsule PO SCH (09:02)
[2021-05-01] MEDS: duloxetine 30mg CAPSULE.DR PO SCH (09:02)
[2021-05-01] MEDS: calcitriol 0.25mcg capsule PO SCH (09:02)
[2021-05-01] MEDS: loratadine 10mg tablet PO SCH (09:03)
[2021-05-01] MEDS: gabapentin 300mg capsule PO SCH (09:03)
[2021-05-01] MEDS: pantoprazole 40mg Tablet.DR PO SCH (09:05)
[2021-05-01 09:06] LABS: ALKALINE PHOSPHATASE 84 IU/L (46-116)
[2021-05-01] MEDS: sevelamer carbonate 800mg tablet PO SCH ×3 (09:11→16:00)
[2021-05-01] MEDS: mag hydrox/Alum hydrox/simeth 30ml oral suspension PO PRN (09:12)
[2021-05-01] MEDS: CefTRIAXone/D5W-Rocephin 1gm 50 ML IV SCH (09:19)
[2021-05-01 10:00] VITALS: BP 147/80
[2021-05-01] MEDS ORDERED: LIDOcaine 1% (10mg/ml) 2ml vial SQ ONE (12:50)
[2021-05-01 13:18] LABS: HEMATOCRIT 27.1 % (35.0-45.0); HEMOGLOBIN 8.7 g/dl (12.0-16.0); MEAN CORPUSCULAR HEMOGLOBIN 30.4 PG (27.0-31.0); MEAN CORPUSCULAR HGB CONC 32.1 g/dL (33.0-36.5); MEAN CORPUSCULAR VOLUME 94.6 FL (78-98); MEAN PLATELET VOLUME 9.2 FL (7.4-10.4); PLATELET COUNT 222 X10'3 (140-440); RED BLOOD COUNT 2.87 X10'6 (4.20-5.60); RED CELL DISTRIBUTION WIDTH 17.8 % (11.5-14.5); WHITE BLOOD COUNT 8.4 X10'3 (4.5-11.0)
[2021-05-01] MEDS: insulin Lispro (HumaLOG) vial - multi-dose SQ SCH (13:28)
[2021-05-01 14:00] VITALS: BP 144/79
[2021-05-01] MEDS: HYDROcodone/acetaminophen 10/325mg tab PO PRN (16:00)
--- NOTE | 2021-05-01 17:09 | NUR ---
Hemodialysis ongoing at this time. Unable to give Renvela at this time, patient need to take this with meal
[2021-05-01 18:00] VITALS: BP 132/76
[2021-05-01] MEDS: NUT.TX.IMP.RENAL FXN,LAC-REDUC (Nepro) 237 ML VANILLA PO SCH ×2 (18:00→20:00)
--- NOTE | 2021-05-01 18:40 | NUR ---
Patient in room ORTHO 4009. I have received report from Latonya VEGA and had the opportunity to ask questions and assume patient care. Addendum: 05/01/21 at 1845 by Sandra Mcdowell RN Amended: Links added.
--- NOTE | 2021-05-01 18:40 | NUR ---
Problems reprioritized. Patient report given, questions answered & plan of care reviewed with Sandra VEGA.
[2021-05-01 19:08] LABS: HEMATOCRIT 28.6 % (35.0-45.0); HEMOGLOBIN 9.5 g/dl (12.0-16.0); MEAN CORPUSCULAR HEMOGLOBIN 30.8 PG (27.0-31.0); MEAN CORPUSCULAR HGB CONC 33.2 g/dL (33.0-36.5); MEAN CORPUSCULAR VOLUME 92.6 FL (78-98); MEAN PLATELET VOLUME 8.8 FL (7.4-10.4); PLATELET COUNT 258 X10'3 (140-440); RED BLOOD COUNT 3.09 X10'6 (4.20-5.60); RED CELL DISTRIBUTION WIDTH 17.6 % (11.5-14.5); WHITE BLOOD COUNT 10.5 X10'3 (4.5-11.0)
--- NOTE | 2021-05-01 20:00 | NUR ---
Nepro carb can not supplied at this time. Addendum: 05/02/21 at 0344 by Sandra Mcdowell RN Amended: Links added.
--- NOTE | 2021-05-01 20:00 | NUR ---
Pt. is anuric; on HD. Addendum: 05/02/21 at 0218 by Sandra Mcdowell RN Amended: Links added.
--- NOTE | 2021-05-01 21:00 | NUR ---
Nepro can not supplied. Addendum: 05/02/21 at 0355 by Sandra Mcdowell RN Amended: Links added.
[2021-05-01 22:00] VITALS: BP 149/80
[2021-05-01] MEDS: insulin glargine (Lantus) pen - multi-dose SQ SCH (22:10)
[2021-05-02] VITALS (7 sets, daily range): BP systolic 113–161; BP diastolic 51–93
[2021-05-02] MEDS: sevelamer carbonate 800mg tablet PO SCH ×3 (00:50→16:18)
[2021-05-02] MEDS: dexamethasone 4mg/ml inj IV SCH ×3 (02:52→08:37)
[2021-05-02] MEDS: proMETHazine 25mg tablet PO SCH ×4 (02:52→21:10)
[2021-05-02] MEDS: HYDROcodone/acetaminophen 10/325mg tab PO PRN ×2 (03:00→21:13)
--- NOTE | 2021-05-02 05:00 | NUR ---
Pt. slept well with no episodes of SOB or hypoglycemic events. Addendum: 05/02/21 at 0647 by Sandra Mcdowell RN Amended: Links added.
--- NOTE | 2021-05-02 06:25 | NUR ---
Problems reprioritized. Patient report given, questions answered & plan of care reviewed with Renata VEGA. Addendum: 05/02/21 at 0625 by Sandra Mcdowell RN Amended: Links added.
--- NOTE | 2021-05-02 06:50 | NUR ---
Patient in room ORTHO 4009B. I have received report from GARY CISNEROS and had the opportunity to ask questions and assume patient care.
[2021-05-02 06:54] LABS: HEMATOCRIT 25.9 % (35.0-45.0); HEMOGLOBIN 8.4 g/dl (12.0-16.0); MEAN CORPUSCULAR HEMOGLOBIN 30.5 PG (27.0-31.0); MEAN CORPUSCULAR HGB CONC 32.4 g/dL (33.0-36.5); MEAN CORPUSCULAR VOLUME 94.3 FL (78-98); MEAN PLATELET VOLUME 9.2 FL (7.4-10.4); PLATELET COUNT 216 X10'3 (140-440); RED BLOOD COUNT 2.75 X10'6 (4.20-5.60); WHITE BLOOD COUNT 7.9 X10'3 (4.5-11.0)
[2021-05-02] MEDS: NUT.TX.IMP.RENAL FXN,LAC-REDUC (Nepro) 237 ML VANILLA PO SCH ×3 (08:00→17:51)
[2021-05-02] MEDS: calcitriol 0.25mcg capsule PO SCH (08:02)
[2021-05-02] MEDS: FLUoxetine 20mg capsule PO SCH (08:03)
[2021-05-02] MEDS: docusate sod 100mg capsule PO SCH ×2 (08:03→21:10)
[2021-05-02] MEDS: pantoprazole 40mg Tablet.DR PO SCH (08:03)
[2021-05-02] MEDS: loratadine 10mg tablet PO SCH (08:05)
[2021-05-02] MEDS: lactobacillus rhamnosus 10,000 MMU CELLS/CAPSULE PO SCH ×2 (08:05→21:10)
[2021-05-02] MEDS: atorvastatin 20mg tablet PO SCH (08:05)
[2021-05-02] MEDS: azithromycin 250mg tablet PO SCH (08:05)
[2021-05-02] MEDS: carVEDilol 3.125mg tablet PO SCH ×2 (08:06→21:11)
[2021-05-02] MEDS: duloxetine 30mg CAPSULE.DR PO SCH (08:06)
[2021-05-02] MEDS: CefTRIAXone/D5W-Rocephin 1gm 50 ML IV SCH (08:38)
[2021-05-02] MEDS: insulin Lispro (HumaLOG) vial - multi-dose SQ SCH ×3 (10:31→19:01)
[2021-05-02] MEDS: DEXAMETHASONE 6 MG TABLET PO SCH (12:18)
[2021-05-02 14:35] LABS: HEMATOCRIT 30.3 % (35.0-45.0); HEMOGLOBIN 9.7 g/dl (12.0-16.0); MEAN CORPUSCULAR HEMOGLOBIN 30.2 PG (27.0-31.0); MEAN CORPUSCULAR VOLUME 94.5 FL (78-98); MEAN PLATELET VOLUME 9.2 FL (7.4-10.4); PLATELET COUNT 271 X10'3 (140-440); RED CELL DISTRIBUTION WIDTH 18.1 % (11.5-14.5); WHITE BLOOD COUNT 10.6 X10'3 (4.5-11.0)
--- NOTE | 2021-05-02 18:44 | NUR ---
Problems reprioritized. Patient report given, questions answered & plan of care reviewed with GARY BANEGAS.
[2021-05-02 18:56] LABS: HEMOGLOBIN 9.2 g/dl (12.0-16.0); MEAN CORPUSCULAR HEMOGLOBIN 30.7 PG (27.0-31.0); MEAN CORPUSCULAR HGB CONC 32.9 g/dL (33.0-36.5); MEAN CORPUSCULAR VOLUME 93.5 FL (78-98); MEAN PLATELET VOLUME 8.8 FL (7.4-10.4); PLATELET COUNT 241 X10'3 (140-440); WHITE BLOOD COUNT 8.9 X10'3 (4.5-11.0)
[2021-05-02] MEDS ORDERED: warfarin 1mg tablet PO ONE (21:00)
[2021-05-02] MEDS: insulin glargine (Lantus) pen - multi-dose SQ SCH (21:09)
[2021-05-02] MEDS: temazepam 15mg capsule PO PRN (21:10)
[2021-05-02] MEDS: gabapentin 100mg capsule PO SCH (21:10)
[2021-05-03] MEDS: sevelamer carbonate 800mg tablet PO SCH ×3 (01:42→15:58)
[2021-05-03] MEDS: proMETHazine 25mg tablet PO SCH ×4 (01:42→20:59)
[2021-05-03] MEDS: HYDROcodone/acetaminophen 10/325mg tab PO PRN ×2 (01:45→18:59)
[2021-05-03 02:00] VITALS: BP 169/89
[2021-05-03 06:00] VITALS: BP 146/77
--- NOTE | 2021-05-03 06:23 | NUR ---
Patient in room ORTHO 4009B. I have received report from GARY BANEGAS and had the opportunity to ask questions and assume patient care.
--- NOTE | 2021-05-03 06:25 | NUR ---
Problems reprioritized. Patient report given, questions answered & plan of care reviewed with aakash Yanez.
[2021-05-03] MEDS: docusate sod 100mg capsule PO SCH ×2 (08:00→20:59)
[2021-05-03] MEDS: NUT.TX.IMP.RENAL FXN,LAC-REDUC (Nepro) 237 ML VANILLA PO SCH ×3 (08:00→17:58)
[2021-05-03] MEDS: lactobacillus rhamnosus 10,000 MMU CELLS/CAPSULE PO SCH ×2 (08:15→20:59)
[2021-05-03] MEDS: azithromycin 250mg tablet PO SCH (08:15)
[2021-05-03] MEDS: calcitriol 0.25mcg capsule PO SCH (08:15)
[2021-05-03] MEDS: carVEDilol 3.125mg tablet PO SCH ×2 (08:16→20:59)
[2021-05-03] MEDS: pantoprazole 40mg Tablet.DR PO SCH (08:16)
[2021-05-03] MEDS: DEXAMETHASONE 6 MG TABLET PO SCH (08:16)
[2021-05-03] MEDS: FLUoxetine 20mg capsule PO SCH (08:16)
[2021-05-03] MEDS: duloxetine 30mg CAPSULE.DR PO SCH (08:16)
[2021-05-03] MEDS: atorvastatin 20mg tablet PO SCH (08:16)
[2021-05-03] MEDS: loratadine 10mg tablet PO SCH (08:16)
[2021-05-03 10:00] VITALS: BP 147/77
--- NOTE | 2021-05-03 12:20 | NUR ---
F/u 05/03: Pt PO remains poor 0-25% though slightly more consistent PO intake past 3 days on 3L NC per EMR. Nepro TID verified in EMR though dietary unaware; first to be sent WS today. LBM 05/[address] d/w RN regarding A1C 7.5% and pt reporting only aware of "DM tendencies" taking glyburide at home. RN reports will confirm if pt aware of DM DX or not. Unable to provide DM education until physician notification at this time. Will continue to monitor for PO/ONS trends and additional protein/kcal needs. Recommendations: 1) liberalize to regular diet given poor PO intake 6 days; encourage PO 2) Consider carb controlled/renal restrictions if PO consistently adequate ~65% avg meals 3) Nepro TIDWM for additional kcals/protein; encourage PO 4) routine Phos checks on HD if MD agreeable; last 8.6 04/24 receiving routine renvela 5) routine bowel care 6) Scaled weight this admit; subsequent scaled wts w/ HD 7) DM education following official DM dx by physician, A1c 7.5% with [facility] "prediabetes" takes Glyburide per EMR 8) IF poor PO persists consider NG nutrition to optimize nutrition status on HD w/ COVID-19 Addendum: 05/03/21 at [address] Amended: Links added.
--- NOTE | 2021-05-03 12:31 | NUR ---
Page Sent PAGER ID: [phone] MESSAGE: RE: MOSESALEX [id number] CAN I GET AN ORDER FOR THE PT TO HAVE NO IV? SHE HAS NO IV MEDS ORDERED. THANK YOU!
[2021-05-03] MEDS: insulin Lispro (HumaLOG) vial - multi-dose SQ SCH ×2 (12:50→19:06)
[2021-05-03 14:00] VITALS: BP 156/84
[2021-05-03 18:00] VITALS: BP 131/61
--- NOTE | 2021-05-03 18:19 | NUR ---
Problems reprioritized. Patient report given, questions answered & plan of care reviewed with GARY Roca.
--- NOTE | 2021-05-03 18:41 | NUR ---
Patient in room ORTHO 4009. I have received report from aakash Yanez and had the opportunity to ask questions and assume patient care.
[2021-05-03] MEDS ORDERED: warfarin 1mg tablet PO ONE (21:00)
[2021-05-03] MEDS: gabapentin 100mg capsule PO SCH (21:01)
[2021-05-03] MEDS: insulin glargine (Lantus) pen - multi-dose SQ SCH (21:07)
[2021-05-03 22:00] VITALS: BP 123/73
[2021-05-04] MEDS: sevelamer carbonate 800mg tablet PO SCH ×3 (00:30→15:13)
[2021-05-04] MEDS: temazepam 15mg capsule PO PRN ×2 (00:30→20:57)
[2021-05-04] MEDS: HYDROcodone/acetaminophen 10/325mg tab PO PRN ×3 (00:32→14:46)
[2021-05-04] MEDS: proMETHazine 25mg tablet PO SCH ×4 (00:33→20:52)
[2021-05-04 02:00] VITALS: BP 127/75
[2021-05-04 06:00] VITALS: BP 128/60
--- NOTE | 2021-05-04 06:29 | NUR ---
Problems reprioritized. Patient report given, questions answered & plan of care reviewed with aakash Yanez.
--- NOTE | 2021-05-04 06:37 | NUR ---
Patient in room ORTHO 4009b. I have received report from GARY Roca and had the opportunity to ask questions and assume patient care.
[2021-05-04] MEDS: dextrose ORAL solution 15 GM/59 ML bottle PO PRN (07:10)
--- NOTE | 2021-05-04 07:14 | NUR ---
Page Sent PAGER ID: [phone] MESSAGE: Renata [phone] Re: Armida Mendenhall [phone] pt's blood sugar was 65 this morning, administered glucose shot, will recheck blood sugar in 15 min. Thanks!
[2021-05-04] MEDS: pantoprazole 40mg Tablet.DR PO SCH (07:24)
[2021-05-04] MEDS: calcitriol 0.25mcg capsule PO SCH (07:24)
[2021-05-04] MEDS: loratadine 10mg tablet PO SCH (07:24)
[2021-05-04] MEDS: duloxetine 30mg CAPSULE.DR PO SCH (07:24)
[2021-05-04] MEDS: lactobacillus rhamnosus 10,000 MMU CELLS/CAPSULE PO SCH ×2 (07:24→20:52)
[2021-05-04] MEDS: atorvastatin 20mg tablet PO SCH (07:24)
[2021-05-04] MEDS: DEXAMETHASONE 6 MG TABLET PO SCH (07:25)
[2021-05-04] MEDS: FLUoxetine 20mg capsule PO SCH (07:25)
[2021-05-04] MEDS: docusate sod 100mg capsule PO SCH ×2 (07:25→20:52)
[2021-05-04] MEDS: carVEDilol 3.125mg tablet PO SCH ×2 (07:25→20:52)
[2021-05-04] MEDS: azithromycin 250mg tablet PO SCH (07:25)
[2021-05-04] MEDS ORDERED: LIDOcaine 1% (10mg/ml) 2ml vial SQ ONE (08:00)
[2021-05-04] MEDS ORDERED: heparin 1,000 units/ml 10ml inj IV ONE (08:00)
[2021-05-04] MEDS ORDERED: normal saline 1000ml 250 ML IV PRN (08:00)
[2021-05-04] MEDS ORDERED: EPOETIN ALFA-EPBX 20,000 UNIT/ML 1 ML MDV IV ONE (08:00)
[2021-05-04] MEDS: NUT.TX.IMP.RENAL FXN,LAC-REDUC (Nepro) 237 ML VANILLA PO SCH ×3 (08:31→18:24)
[2021-05-04 10:00] VITALS: BP 137/81
[2021-05-04 10:28] LABS: BASOPHILS % (AUTO) 0.5 % (0-1); EOSINOPHILS # (AUTO) 0.3 X10'3 (0-0.9); EOSINOPHILS % (AUTO) 2.8 % (0-6); HEMATOCRIT 26.9 % (35.0-45.0); HEMOGLOBIN 8.7 g/dl (12.0-16.0); LYMPHOCYTES # (AUTO) 0.2 X10'3 (1.1-4.8); LYMPHOCYTES % (AUTO) 1.5 % (21-51); MEAN CORPUSCULAR HEMOGLOBIN 30.3 PG (27.0-31.0); MEAN CORPUSCULAR HGB CONC 32.3 g/dL (33.0-36.5); MEAN CORPUSCULAR VOLUME 93.7 FL (78-98); MEAN PLATELET VOLUME 8.8 FL (7.4-10.4); MONOCYTES # (AUTO) 0.8 X10'3 (0-0.9); MONOCYTES % (AUTO) 8.2 % (2-12); NEUTROPHILS # (AUTO) 8.8 X10'3 (1.8-7.7); PLATELET COUNT 234 X10'3 (140-440); RED BLOOD COUNT 2.87 X10'6 (4.20-5.60); RED CELL DISTRIBUTION WIDTH 17.9 % (11.5-14.5); WHITE BLOOD COUNT 10.2 X10'3 (4.5-11.0)
[2021-05-04 10:42] LABS: ALANINE AMINOTRANSFERASE 9 U/L (12-78); ALBUMIN 2.1 G/DL (3.4-5.0); ALBUMIN/GLOBULIN RATIO 0.6 (1.1-1.5); ALKALINE PHOSPHATASE 95 IU/L (46-116); ANION GAP 12 (8-16); ASPARTATE AMINO TRANSFERASE 13 U/L (10-37); BILIRUBIN,TOTAL 0.5 MG/DL (0.1-1.0); BLOOD UREA NITROGEN 76 MG/DL (7-18); BUN/CREATININE RATIO 9.3 (6.6-38.0); CALCIUM 7.6 MG/DL (8.5-10.1); CHLORIDE 97 MMOL/L (99-107); CREATININE 8.13 MG/DL (0.40-0.90); GLUCOSE 167 MG/DL (70-104); POTASSIUM 4.2 MMOL/L (3.5-5.1); SODIUM 136 MMOL/L (135-145); TOTAL CARBON DIOXIDE 27.4 MMOL/L (24-32); TOTAL PROTEIN 5.8 G/DL (6.4-8.2); eGFR 5 ML/MIN
[2021-05-04 14:00] VITALS: BP 130/85
[2021-05-04] MEDS: insulin Lispro (HumaLOG) vial - multi-dose SQ SCH ×2 (15:15→18:52)
--- NOTE | 2021-05-04 17:25 | NUR ---
Dr. Heaton wants nurse to contact pt's ortho surgeon in am to update them on pt's status. also ordered an x-ray of pt's left ankle, which was completed. I tried calling pt's surgeon, but the office had just closed. Pt's surgeon is Dr. Bejarano in [place], telephone number [phone]. Will relay message to night nurse to relay to tomorrow's day nurse.
[2021-05-04 18:00] VITALS: BP 153/75
--- NOTE | 2021-05-04 18:25 | NUR ---
Problems reprioritized. Patient report given, questions answered & plan of care reviewed with GARY Roca.
--- NOTE | 2021-05-04 18:30 | NUR ---
Patient in room ORTHO 4009. I have received report from aakash Yanez and had the opportunity to ask questions and assume patient care.
[2021-05-04] MEDS: insulin glargine (Lantus) pen - multi-dose SQ SCH (20:51)
[2021-05-04] MEDS: gabapentin 100mg capsule PO SCH (20:52)
[2021-05-04] MEDS ORDERED: warfarin 5mg tablet PO ONE (21:00)
[2021-05-04 22:00] VITALS: BP 132/71
[2021-05-05] MEDS: sevelamer carbonate 800mg tablet PO SCH ×3 (00:24→16:30)
[2021-05-05] MEDS: HYDROcodone/acetaminophen 10/325mg tab PO PRN ×3 (00:24→22:38)
[2021-05-05] MEDS: proMETHazine 25mg tablet PO SCH ×4 (01:29→21:01)
[2021-05-05 02:00] VITALS: BP 137/74
[2021-05-05] MEDS ORDERED: HYDROcodone/acetaminophen 10/325mg tab PO ONE (03:15)
[2021-05-05] MEDS ORDERED: carVEDilol 3.125mg tablet PO ONE (03:15)
--- NOTE | 2021-05-05 03:16 | NUR ---
Pt's Hr up to 130's afib. call to Dr. Rayo orders received bp at this time 126/69 hr 130 sat 91 8l hf rr 20. pain to back 02/09 1 more phu ordered, pt stated its her chronic back pain.
--- NOTE | 2021-05-05 04:22 | NUR ---
notified dr. wilder that pt's hr is still 130's. no new order received for now.
[2021-05-05 06:00] VITALS: BP 130/80
--- NOTE | 2021-05-05 06:45 | NUR ---
Problems reprioritized. Patient report given, questions answered & plan of care reviewed with aakash Traore.
--- NOTE | 2021-05-05 06:47 | NUR ---
Patient in room ORTHO 4009. I have received report from tristen finn and had the opportunity to ask questions and assume patient care.
[2021-05-05] MEDS: carVEDilol 3.125mg tablet PO SCH ×2 (08:00→21:01)
[2021-05-05] MEDS: calcitriol 0.25mcg capsule PO SCH (08:47)
[2021-05-05] MEDS: docusate sod 100mg capsule PO SCH ×2 (08:47→21:00)
[2021-05-05] MEDS: loratadine 10mg tablet PO SCH (08:47)
[2021-05-05] MEDS: duloxetine 30mg CAPSULE.DR PO SCH (08:47)
[2021-05-05] MEDS: lactobacillus rhamnosus 10,000 MMU CELLS/CAPSULE PO SCH ×2 (08:48→21:00)
[2021-05-05] MEDS: azithromycin 250mg tablet PO SCH (08:48)
[2021-05-05] MEDS: atorvastatin 20mg tablet PO SCH (08:48)
[2021-05-05] MEDS: FLUoxetine 20mg capsule PO SCH (08:48)
[2021-05-05] MEDS: pantoprazole 40mg Tablet.DR PO SCH (08:52)
[2021-05-05] MEDS: NUT.TX.IMP.RENAL FXN,LAC-REDUC (Nepro) 237 ML VANILLA PO SCH ×3 (08:57→17:45)
[2021-05-05 09:45] LABS: BASOPHILS # (AUTO) 0.1 X10'3 (0-0.2); BASOPHILS % (AUTO) 0.7 % (0-1); EOSINOPHILS # (AUTO) 0.3 X10'3 (0-0.9); EOSINOPHILS % (AUTO) 2.6 % (0-6); HEMATOCRIT 28.8 % (35.0-45.0); HEMOGLOBIN 9.4 g/dl (12.0-16.0); LYMPHOCYTES # (AUTO) 0.3 X10'3 (1.1-4.8); LYMPHOCYTES % (AUTO) 2.4 % (21-51); MEAN CORPUSCULAR HEMOGLOBIN 30.1 PG (27.0-31.0); MEAN CORPUSCULAR HGB CONC 32.5 g/dL (33.0-36.5); MEAN CORPUSCULAR VOLUME 92.5 FL (78-98); MEAN PLATELET VOLUME 9.7 FL (7.4-10.4); MONOCYTES # (AUTO) 1.2 X10'3 (0-0.9); MONOCYTES % (AUTO) 9.9 % (2-12); NEUTROPHILS # (AUTO) 9.9 X10'3 (1.8-7.7); NEUTROPHILS % (AUTO) 84.4 % (42-75); PLATELET COUNT 270 X10'3 (140-440); RED BLOOD COUNT 3.11 X10'6 (4.20-5.60); RED CELL DISTRIBUTION WIDTH 17.7 % (11.5-14.5); WHITE BLOOD COUNT 11.7 X10'3 (4.5-11.0)
[2021-05-05 10:00] VITALS: BP 110/70
[2021-05-05 10:03] LABS: D-DIMER 1.23 MG/L FEU (0-0.50)
[2021-05-05 10:10] LABS: ALANINE AMINOTRANSFERASE 7 U/L (12-78); ALBUMIN/GLOBULIN RATIO 0.5 (1.1-1.5); ALKALINE PHOSPHATASE 94 IU/L (46-116); ASPARTATE AMINO TRANSFERASE 18 U/L (10-37); BILIRUBIN,TOTAL 0.5 MG/DL (0.1-1.0); BLOOD UREA NITROGEN 50 MG/DL (7-18); BUN/CREATININE RATIO 7.8 (6.6-38.0); C-REACTIVE PROTEIN 7.03 MG/DL (0.0-0.5); CALCIUM 7.8 MG/DL (8.5-10.1); CHLORIDE 99 MMOL/L (99-107); GLUCOSE 91 MG/DL (70-104); TOTAL CARBON DIOXIDE 29.7 MMOL/L (24-32); TOTAL PROTEIN 5.9 G/DL (6.4-8.2); eGFR 7 ML/MIN
[2021-05-05 10:17] LABS: ANION GAP 9 (8-16); SODIUM 138 MMOL/L (135-145)
[2021-05-05 18:00] VITALS: BP 113/74
--- NOTE | 2021-05-05 18:43 | NUR ---
Problems reprioritized. Patient report given, questions answered & plan of care reviewed with SONIA VEGA.
[2021-05-05] MEDS: gabapentin 100mg capsule PO SCH (21:01)
[2021-05-05] MEDS: DEXAMETHASONE 6 MG TABLET PO SCH (21:01)
[2021-05-05 22:00] VITALS: BP 126/64
[2021-05-05] MEDS: insulin glargine (Lantus) pen - multi-dose SQ SCH (22:18)
[2021-05-06] VITALS (8 sets, daily range): BP systolic 90–147; BP diastolic 36–84
[2021-05-06] MEDS: proMETHazine 25mg tablet PO SCH ×4 (03:15→19:48)
[2021-05-06 07:28] LABS: BASOPHILS % (AUTO) 0.4 % (0-1); EOSINOPHILS % (AUTO) 0.1 % (0-6); HEMATOCRIT 25.2 % (35.0-45.0); HEMOGLOBIN 8.1 g/dl (12.0-16.0); LYMPHOCYTES # (AUTO) 0.1 X10'3 (1.1-4.8); LYMPHOCYTES % (AUTO) 2.5 % (21-51); MEAN CORPUSCULAR HEMOGLOBIN 30.3 PG (27.0-31.0); MEAN CORPUSCULAR HGB CONC 32.3 g/dL (33.0-36.5); MEAN CORPUSCULAR VOLUME 93.6 FL (78-98); MEAN PLATELET VOLUME 9.9 FL (7.4-10.4); MONOCYTES # (AUTO) 0.2 X10'3 (0-0.9); NEUTROPHILS # (AUTO) 5.6 X10'3 (1.8-7.7); PLATELET COUNT 201 X10'3 (140-440); RED BLOOD COUNT 2.69 X10'6 (4.20-5.60); RED CELL DISTRIBUTION WIDTH 17.9 % (11.5-14.5)
[2021-05-06 07:52] LABS: ALBUMIN 1.9 G/DL (3.4-5.0); ALBUMIN/GLOBULIN RATIO 0.5 (1.1-1.5); ALKALINE PHOSPHATASE 151 IU/L (46-116); ANION GAP 14 (8-16); ASPARTATE AMINO TRANSFERASE 20 U/L (10-37); BILIRUBIN,TOTAL 0.5 MG/DL (0.1-1.0); BLOOD UREA NITROGEN 65 MG/DL (7-18); BUN/CREATININE RATIO 8.4 (6.6-38.0); C-REACTIVE PROTEIN 17.42 MG/DL (0.0-0.5); CHLORIDE 97 MMOL/L (99-107); GLUCOSE 132 MG/DL (70-104); SODIUM 135 MMOL/L (135-145); TOTAL CARBON DIOXIDE 24.2 MMOL/L (24-32); TOTAL PROTEIN 5.8 G/DL (6.4-8.2); eGFR 5 ML/MIN
[2021-05-06 07:53] LABS: D-DIMER 0.73 MG/L FEU (0-0.50)
[2021-05-06 07:59] LABS: ALANINE AMINOTRANSFERASE < 6 U/L (12-78)
[2021-05-06] MEDS: NUT.TX.IMP.RENAL FXN,LAC-REDUC (Nepro) 237 ML VANILLA PO SCH ×3 (08:00→18:03)
[2021-05-06] MEDS: sevelamer carbonate 800mg tablet PO SCH ×4 (10:51→23:57)
[2021-05-06] MEDS: azithromycin 250mg tablet PO SCH (10:52)
[2021-05-06] MEDS: DEXAMETHASONE 6 MG TABLET PO SCH ×2 (10:52→19:48)
[2021-05-06] MEDS: FLUoxetine 20mg capsule PO SCH (10:52)
[2021-05-06] MEDS: duloxetine 30mg CAPSULE.DR PO SCH (10:52)
[2021-05-06] MEDS: carVEDilol 3.125mg tablet PO SCH ×2 (10:52→19:46)
[2021-05-06] MEDS: pantoprazole 40mg Tablet.DR PO SCH (10:52)
[2021-05-06] MEDS: docusate sod 100mg capsule PO SCH ×2 (10:52→19:47)
[2021-05-06] MEDS: lactobacillus rhamnosus 10,000 MMU CELLS/CAPSULE PO SCH ×2 (10:53→19:48)
[2021-05-06] MEDS: calcitriol 0.25mcg capsule PO SCH (10:53)
[2021-05-06] MEDS: loratadine 10mg tablet PO SCH (10:53)
[2021-05-06] MEDS: atorvastatin 20mg tablet PO SCH (10:53)
--- NOTE | 2021-05-06 11:09 | NUR ---
Called on-call dialysis. Dialysis isn't planned until after 1pm.
--- NOTE | 2021-05-06 11:37 | NUR ---
Called Dr. Bejarano orthopedic in [facility] for clarification on WB status. Unable to reach MD or his tech. Left voicemail asking for return phone call with contact information. MD Bejarano'd RN not available Fridays apparently. Attempted to "prone" pt, pt. refused stating "Not right now". Pt. not motivated, slumped down in bed, does not want to even reposition let alone prone or get into her recliner. Educated extensively on chronic kidney disease, fluid in lungs, and risk factors for PNA, ways to prevent PNA. Pt. not interested, very passive and states, "I'm just going to rest right now."
--- NOTE | 2021-05-06 11:47 | NUR ---
MD WILKERSON's office [phone] called back. Spoke with MD Darci Rogel's RN assistance. States pt. lives in [place] and is supposed to f/u with Dr. Ramirez there [phone]. Called his office. Malka ogden said wont be in until Monday. Requested MDs cell phone number, community youth secretary transferred this RN to another staff member Mago POLANCO who states she will call Alicia RN assistance for MD Ramirez and request her to call us back.
--- NOTE | 2021-05-06 11:56 | NUR ---
Alicia VEGA from Dr. Ramirez's office [phone] states that as long as nothing is abnormal with ankle xray, pt. is to be full WB as tolerated. The boot is only for when pt. is up OOB and should be taken off when in bed. She recommends pt. be transitioned to a smaller more flexible brace that can fit in a shoe like just an ankle brace when appropriate. Starry strips can fall off and incision does not need to be dressed unless boot is irritating incision. Paged PT to notify.
[2021-05-06] MEDS ORDERED: LIDOcaine 1% (10mg/ml) 2ml vial SQ ONE (14:10)
[2021-05-06] MEDS ORDERED: normal saline 1000ml 250 ML IV PRN (14:10)
[2021-05-06] MEDS ORDERED: normal saline 1000ml 100 ML IV PRN (14:10)
[2021-05-06] MEDS ORDERED: EPOETIN ALFA-EPBX 20,000 UNIT/ML 1 ML MDV IV ONE (14:10)
--- NOTE | 2021-05-06 14:43 | NUR ---
fence manufacture supervisor in room with pt. at this time.
--- NOTE | 2021-05-06 14:46 | NUR ---
Reassessment: Pt continues with poor PO intake, documented with 0-25% PO intake with occasional meal refusal on renal diet. Pt receiving Nepro TID and refusing most ONS with the exception of 25% PO intake of ONS at breakfast 05/05 and 100% at dinner 05/05. Overall pt not meeting estimated nutrient needs and would benefit from nutrition support given prolonged poor PO intake. LBM 05/02, receiving routine bowel care with PRN MoM available last documented to be given 04/30. Will continue to follow closely. Recommendations: 1) Liberalize to regular diet given poor PO intake 12 days; encourage PO 2) Consider carb controlled/renal restrictions if PO consistently adequate ~65% avg meals 3) Nepro TIDWM for additional kcal/protein; encourage PO intake 4) Routine Phos checks if MD agreeable; last 8.6 04/24 receiving routine Renvela and on HD 5) Routine bowel care 6) Scaled weight this admit; subsequent scaled wts w/ HD 7) DM education following official DM dx by physician, A1c 7.5% with H "prediabetes" takes Glyburide per EMR 8) Consider NGTF to optimize nutrition status given prolonged poor PO intake and pt on HD with COVID-19 Addendum: 05/06/21 at [address] Amended: Links added.
[2021-05-06] MEDS ORDERED: furosemide 20 MG/2 ML vial IV SCH (15:10)
[2021-05-06] MEDS ORDERED: PERFLUTREN PROTEIN-A MICROSPHR (Optison) 0.22 MG/ML 3ML VIAL IV PRN (15:10)
--- NOTE | 2021-05-06 15:49 | NUR ---
PAGER ID: [phone] MESSAGE: Armida Mendenhall [phone] Please call and clarify Lasix dose. Pt. has creatine above 7 and is anuric. thank you, Zoya 2540
[2021-05-06] MEDS: HYDROcodone/acetaminophen 10/325mg tab PO PRN ×3 (15:58→23:58)
--- NOTE | 2021-05-06 17:26 | NUR ---
PAGER ID: [phone] MESSAGE: Armida Mendenhall [id number] Heart rhythm has converted to aflutter after dialysis. HR 137. Zoya 7164
--- NOTE | 2021-05-06 17:36 | NUR ---
Hospitalist called to floor. Aware of HR and abnormal rhythm. Pt. HR has jumped up after previous dialysis procedures and then resolved. Was told in report that coreg had been used before and nursing notes state previous IVP Cardizem. Hospitalist made. aware. Hospitalist requested full set of VS to be paged and stated to continue to monitor.
--- NOTE | 2021-05-06 17:46 | NUR ---
PAGER ID: [phone] MESSAGE: Armida Mendenhall 97.8, 113-145 HR, 16-18 RR 85/65 BP dialysis nurse gave her 200 ml of fluid back bp 95/71, SA02 100% on 10LPM via Mithridion. Zoya 5220
--- NOTE | 2021-05-06 18:35 | NUR ---
Patient in room ORTHO 4009. I have received report from GARY Kenny and had the opportunity to ask questions and assume patient care.
--- NOTE | 2021-05-06 18:40 | NUR ---
Problems reprioritized. Patient report given, questions answered & plan of care reviewed with Anushka VEGA.
[2021-05-06] MEDS ORDERED: warfarin 3mg tablet PO ONE (21:00)
[2021-05-06] MEDS: gabapentin 100mg capsule PO SCH (21:27)
[2021-05-06] MEDS: insulin glargine (Lantus) pen - multi-dose SQ SCH (21:28)
[2021-05-06] MEDS: temazepam 15mg capsule PO PRN (23:57)
[2021-05-07] VITALS (7 sets, daily range): BP systolic 114–146; BP diastolic 63–82
[2021-05-07] MEDS: proMETHazine 25mg tablet PO SCH ×4 (02:00→20:16)
--- NOTE | 2021-05-07 06:00 | NUR ---
Problems reprioritized. Patient report given, questions answered & plan of care reviewed with GARY Kenny.
[2021-05-07 07:19] LABS: BASOPHILS % (AUTO) 0 % (0-1); EOSINOPHILS % (AUTO) 0.5 % (0-6); HEMATOCRIT 28.2 % (35.0-45.0); HEMOGLOBIN 9.1 g/dl (12.0-16.0); LYMPHOCYTES # (AUTO) 0.2 X10'3 (1.1-4.8); LYMPHOCYTES % (AUTO) 3.3 % (21-51); MEAN CORPUSCULAR HEMOGLOBIN 30.3 PG (27.0-31.0); MEAN CORPUSCULAR HGB CONC 32.1 g/dL (33.0-36.5); MEAN CORPUSCULAR VOLUME 94.4 FL (78-98); MEAN PLATELET VOLUME 9.8 FL (7.4-10.4); MONOCYTES # (AUTO) 0.5 X10'3 (0-0.9); NEUTROPHILS # (AUTO) 5.9 X10'3 (1.8-7.7); NEUTROPHILS % (AUTO) 88.2 % (42-75); PLATELET COUNT 219 X10'3 (140-440); RED BLOOD COUNT 2.99 X10'6 (4.20-5.60); RED CELL DISTRIBUTION WIDTH 17.8 % (11.5-14.5); WHITE BLOOD COUNT 6.7 X10'3 (4.5-11.0)
[2021-05-07] MEDS: pantoprazole 40mg Tablet.DR PO SCH (07:30)
--- NOTE | 2021-05-07 07:55 | NUR ---
PAGER ID: [phone] MESSAGE: Armida Mendenhall [id number] your progress note states 10 mg Lasix bid. none ordered. BP ok, kidney function poor, anuric. No IV order. Would you like to make the Lasix a order? IV or PO? Zoya 9525
[2021-05-07] MEDS: NUT.TX.IMP.RENAL FXN,LAC-REDUC (Nepro) 237 ML VANILLA PO SCH ×3 (08:00→18:09)
[2021-05-07] MEDS: calcitriol 0.25mcg capsule PO SCH (09:01)
[2021-05-07] MEDS: docusate sod 100mg capsule PO SCH ×2 (09:01→20:16)
[2021-05-07] MEDS: sevelamer carbonate 800mg tablet PO SCH ×2 (09:02→15:25)
[2021-05-07] MEDS: loratadine 10mg tablet PO SCH (09:02)
[2021-05-07] MEDS: FLUoxetine 20mg capsule PO SCH (09:02)
[2021-05-07] MEDS: duloxetine 30mg CAPSULE.DR PO SCH (09:02)
[2021-05-07] MEDS: lactobacillus rhamnosus 10,000 MMU CELLS/CAPSULE PO SCH ×2 (09:02→20:16)
[2021-05-07] MEDS: atorvastatin 20mg tablet PO SCH (09:02)
[2021-05-07] MEDS: azithromycin 250mg tablet PO SCH (09:02)
[2021-05-07] MEDS: DEXAMETHASONE 6 MG TABLET PO SCH ×2 (09:03→20:16)
[2021-05-07] MEDS: carVEDilol 3.125mg tablet PO SCH ×2 (09:03→20:16)
--- NOTE | 2021-05-07 09:33 | NUR ---
[employer] technical assistant Marina states 2 tech have been up to draw pt but are unable. States another tech will be here after 10am.
[2021-05-07] MEDS: HYDROcodone/acetaminophen 10/325mg tab PO PRN ×2 (15:24→20:16)
--- NOTE | 2021-05-07 18:25 | NUR ---
Gave report Anushka VEGA
--- NOTE | 2021-05-07 18:29 | NUR ---
Saw that labs from earlier still not completed and called lab. cinetechnician states same person that tried this AM is the one that has been here all day- so no one new came after 10am. States there is oncoming personnel that will attempted to obtain labs on this pt.
--- NOTE | 2021-05-07 18:30 | NUR ---
Patient in room ORTHO 4009. I have received report from GARY Kenny and had the opportunity to ask questions and assume patient care.
[2021-05-07 19:16] LABS: D-DIMER 0.38 MG/L FEU (0-0.50)
[2021-05-07] MEDS: insulin Lispro (HumaLOG) vial - multi-dose SQ SCH (19:17)
[2021-05-07] MEDS: gabapentin 100mg capsule PO SCH (20:16)
[2021-05-07] MEDS: temazepam 15mg capsule PO PRN (20:21)
[2021-05-07] MEDS: insulin glargine (Lantus) pen - multi-dose SQ SCH (21:39)
[2021-05-08] MEDS: sevelamer carbonate 800mg tablet PO SCH ×3 (00:08→20:19)
[2021-05-08 02:00] VITALS: BP 129/71
[2021-05-08] MEDS: proMETHazine 25mg tablet PO SCH ×4 (02:00→20:19)
[2021-05-08] MEDS ORDERED: LIDOcaine 1% (10mg/ml) 2ml vial SQ ONE (06:15)
[2021-05-08] MEDS ORDERED: EPOETIN ALFA-EPBX 20,000 UNIT/ML 1 ML MDV IV ONE (06:15)
[2021-05-08] MEDS ORDERED: heparin 1,000 units/ml 10ml inj IV ONE (06:15)
[2021-05-08] MEDS ORDERED: normal saline 1000ml 250 ML IV PRN (06:15)
--- NOTE | 2021-05-08 06:38 | NUR ---
Problems reprioritized. Patient report given, questions answered & plan of care reviewed with GARY Walker.
--- NOTE | 2021-05-08 06:45 | NUR ---
Patient in room ORTHO 4009. I have received report from GARY Reveles and had the opportunity to ask questions and assume patient care.
[2021-05-08] MEDS: duloxetine 30mg CAPSULE.DR PO SCH (07:38)
[2021-05-08] MEDS: FLUoxetine 20mg capsule PO SCH (07:38)
[2021-05-08] MEDS: loratadine 10mg tablet PO SCH (07:38)
[2021-05-08] MEDS: lactobacillus rhamnosus 10,000 MMU CELLS/CAPSULE PO SCH ×2 (07:38→20:19)
[2021-05-08] MEDS: pantoprazole 40mg Tablet.DR PO SCH (07:38)
[2021-05-08] MEDS: docusate sod 100mg capsule PO SCH ×2 (07:39→20:19)
[2021-05-08] MEDS: DEXAMETHASONE 6 MG TABLET PO SCH ×2 (07:39→20:19)
[2021-05-08] MEDS: calcitriol 0.25mcg capsule PO SCH (07:39)
[2021-05-08] MEDS: carVEDilol 3.125mg tablet PO SCH ×2 (07:39→20:19)
[2021-05-08] MEDS: atorvastatin 20mg tablet PO SCH (07:39)
[2021-05-08] MEDS: HYDROcodone/acetaminophen 10/325mg tab PO PRN ×3 (07:47→20:19)
[2021-05-08] MEDS: NUT.TX.IMP.RENAL FXN,LAC-REDUC (Nepro) 237 ML VANILLA PO SCH ×3 (08:00→18:00)
[2021-05-08 08:20] LABS: BASOPHILS % (AUTO) 0.7 % (0-1); EOSINOPHILS % (AUTO) 0.1 % (0-6); HEMATOCRIT 27.4 % (35.0-45.0); HEMOGLOBIN 8.8 g/dl (12.0-16.0); LYMPHOCYTES # (AUTO) 0.2 X10'3 (1.1-4.8); LYMPHOCYTES % (AUTO) 2.2 % (21-51); MEAN CORPUSCULAR HEMOGLOBIN 30.1 PG (27.0-31.0); MEAN CORPUSCULAR HGB CONC 32.3 g/dL (33.0-36.5); MEAN CORPUSCULAR VOLUME 93.3 FL (78-98); MEAN PLATELET VOLUME 9.1 FL (7.4-10.4); MONOCYTES # (AUTO) 0.5 X10'3 (0-0.9); MONOCYTES % (AUTO) 6.2 % (2-12); NEUTROPHILS # (AUTO) 6.7 X10'3 (1.8-7.7); NEUTROPHILS % (AUTO) 90.8 % (42-75); PLATELET COUNT 282 X10'3 (140-440); RED BLOOD COUNT 2.94 X10'6 (4.20-5.60); RED CELL DISTRIBUTION WIDTH 17.5 % (11.5-14.5); WHITE BLOOD COUNT 7.4 X10'3 (4.5-11.0)
[2021-05-08 08:25] LABS: D-DIMER 0.91 MG/L FEU (0-0.50)
[2021-05-08 08:58] LABS: ALANINE AMINOTRANSFERASE 10 U/L (12-78); ALBUMIN 2.3 G/DL (3.4-5.0); ALBUMIN/GLOBULIN RATIO 0.5 (1.1-1.5); ALKALINE PHOSPHATASE 113 IU/L (46-116); ANION GAP 14 (8-16); ASPARTATE AMINO TRANSFERASE 12 U/L (10-37); BILIRUBIN,TOTAL 0.5 MG/DL (0.1-1.0); BLOOD UREA NITROGEN 52 MG/DL (7-18); BUN/CREATININE RATIO 8.7 (6.6-38.0); C-REACTIVE PROTEIN 7.27 MG/DL (0.0-0.5); CALCIUM 8.6 MG/DL (8.5-10.1); CHLORIDE 99 MMOL/L (99-107); CREATININE 6.01 MG/DL (0.40-0.90); GLUCOSE 210 MG/DL (70-104); POTASSIUM 4.1 MMOL/L (3.5-5.1); SODIUM 139 MMOL/L (135-145); TOTAL CARBON DIOXIDE 26.5 MMOL/L (24-32); TOTAL PROTEIN 7.1 G/DL (6.4-8.2); eGFR 7 ML/MIN
[2021-05-08] MEDS ORDERED: ALBUTEROL INHALER 1 PUFF/90 MCG INHALER IH SCH (09:10)
[2021-05-08] MEDS: insulin Lispro (HumaLOG) vial - multi-dose SQ SCH ×3 (09:35→20:18)
[2021-05-08 10:00] VITALS: BP 135/76
--- NOTE | 2021-05-08 12:49 | NUR ---
Dr. Heaton in to see patient.
[2021-05-08] MEDS ORDERED: CefTRIAXone/D5W-Rocephin 1gm 50 ML IV SCH (13:25)
[2021-05-08] MEDS ORDERED: azithromycin 250mg tablet PO ONE (13:25)
[2021-05-08] MEDS ORDERED: ipratropium/albuterol 3ml nebule NEB PRN (13:30)
[2021-05-08 14:26] VITALS: BP 142/77
[2021-05-08] MEDS: ipratropium/albuterol 3ml nebule NEB SCH ×2 (15:00→19:00)
--- NOTE | 2021-05-08 16:17 | NUR ---
PAGER ID: [phone] MESSAGE: [phone]- Mendenhall, A- unable to get IV start. missed 1325 Rocephin dose. Attempted x3 times by 2 RN's.- Arianne 5199
--- NOTE | 2021-05-08 16:17 | NUR ---
trauma registrar at bedside.
[2021-05-08] MEDS: mag hydrox/Alum hydrox/simeth 30ml oral suspension PO PRN (16:43)
[2021-05-08 18:00] VITALS: BP 151/86
--- NOTE | 2021-05-08 18:15 | NUR ---
Patient in room ORTHO 4009. I have received report from GARY Walker and had the opportunity to ask questions and assume patient care.
--- NOTE | 2021-05-08 18:23 | NUR ---
Problems reprioritized. Patient report given, questions answered & plan of care reviewed with GARY Reveles and is aware patient Vantin and Renvela not given as patient is having dialysis at this time. Vantin and Renvela to be given with meals and patient will have meal after dialysis completed.
[2021-05-08] MEDS: gabapentin 100mg capsule PO SCH (20:19)
[2021-05-08] MEDS: cefpodoxime proxetil 100mg tablet PO SCH (20:20)
[2021-05-08 20:30] VITALS: BP 141/78
[2021-05-08] MEDS: insulin glargine (Lantus) pen - multi-dose SQ SCH (21:17)
[2021-05-08 22:00] VITALS: BP 139/77
[2021-05-09] MEDS: HYDROcodone/acetaminophen 10/325mg tab PO PRN ×4 (00:36→21:06)
[2021-05-09] MEDS: proMETHazine 25mg tablet PO SCH ×4 (01:33→21:07)
[2021-05-09 02:00] VITALS: BP 155/87
[2021-05-09] MEDS ORDERED: heparin 1,000 units/ml 10ml inj IV ONE (06:40)
[2021-05-09] MEDS ORDERED: EPOETIN ALFA-EPBX 20,000 UNIT/ML 1 ML MDV IV ONE (06:40)
[2021-05-09] MEDS ORDERED: LIDOcaine 1% (10mg/ml) 2ml vial SQ ONE (06:40)
[2021-05-09] MEDS ORDERED: normal saline 1000ml 250 ML IV PRN (06:40)
--- NOTE | 2021-05-09 06:45 | NUR ---
Problems reprioritized. Patient report given, questions answered & plan of care reviewed with GARY Wilcox.
[2021-05-09 07:47] LABS: D-DIMER 0.53 MG/L FEU (0-0.50)
[2021-05-09 07:51] LABS: BASOPHILS % (AUTO) 0 % (0-1); EOSINOPHILS % (AUTO) 0 % (0-6); HEMATOCRIT 28.9 % (35.0-45.0); HEMOGLOBIN 9.2 g/dl (12.0-16.0); LYMPHOCYTES # (AUTO) 0.2 X10'3 (1.1-4.8); MEAN CORPUSCULAR HEMOGLOBIN 29.7 PG (27.0-31.0); MEAN CORPUSCULAR HGB CONC 31.7 g/dL (33.0-36.5); MEAN CORPUSCULAR VOLUME 93.7 FL (78-98); MONOCYTES # (AUTO) 0.4 X10'3 (0-0.9); MONOCYTES % (AUTO) 4.2 % (2-12); NEUTROPHILS # (AUTO) 8.3 X10'3 (1.8-7.7); NEUTROPHILS % (AUTO) 93.8 % (42-75); PLATELET COUNT 256 X10'3 (140-440); RED BLOOD COUNT 3.09 X10'6 (4.20-5.60); RED CELL DISTRIBUTION WIDTH 17.2 % (11.5-14.5); WHITE BLOOD COUNT 8.8 X10'3 (4.5-11.0)
[2021-05-09 07:58] LABS: ALANINE AMINOTRANSFERASE 6 U/L (12-78); ALBUMIN 2.3 G/DL (3.4-5.0); ALBUMIN/GLOBULIN RATIO 0.5 (1.1-1.5); ALKALINE PHOSPHATASE 117 IU/L (46-116); ANION GAP 7 (8-16); ASPARTATE AMINO TRANSFERASE 9 U/L (10-37); BILIRUBIN,TOTAL 0.4 MG/DL (0.1-1.0); BLOOD UREA NITROGEN 36 MG/DL (7-18); BUN/CREATININE RATIO 7.3 (6.6-38.0); C-REACTIVE PROTEIN 4.47 MG/DL (0.0-0.5); CALCIUM 8.6 MG/DL (8.5-10.1); CHLORIDE 103 MMOL/L (99-107); CREATININE 4.95 MG/DL (0.40-0.90); GLUCOSE 161 MG/DL (70-104); SODIUM 141 MMOL/L (135-145); TOTAL CARBON DIOXIDE 30.9 MMOL/L (24-32); TOTAL PROTEIN 6.5 G/DL (6.4-8.2); eGFR 9 ML/MIN
[2021-05-09 08:00] VITALS: BP 146/79
[2021-05-09] MEDS: NUT.TX.IMP.RENAL FXN,LAC-REDUC (Nepro) 237 ML VANILLA PO SCH ×3 (08:00→18:07)
[2021-05-09] MEDS: ipratropium/albuterol 3ml nebule NEB SCH ×5 (08:18→22:52)
--- NOTE | 2021-05-09 08:43 | NUR ---
Reassessment: Pt w/ improved meal intake on Renal diet, avg 56% x 9 meals though w/ inconsistent ONS intake partially meeting needs. Pt currently on 15L high flow oxygen. Pt continues on dialysis, last treatment 05/08 w/ 1.5L out. Pt may benefit from supplemental NGT feedings to help meet increased energy and protein needs. LBM 05/06 receiving routine colace. Will continue to monitor and make recommendations as appropriate. Recommendations: 1) Liberalize to regular diet given poor PO intake 12 days; encourage PO 2) Consider carb controlled/renal restrictions if PO consistently adequate average 65% PO intake of meals 3) Nepro TIDWM for additional kcal/protein; encourage PO intake 4) Routine Phos checks if MD agreeable; last 8.6 04/24 receiving routine Renvela and on HD 5) Routine bowel care 6) Scaled weight this admit; subsequent scaled wts w/ HD 7) DM education following official DM dx by physician, A1c 7.5% with PMH "prediabetes" takes Glyburide per EMR 8) Consider NGTF to optimize nutrition status given prolonged poor PO intake and pt on HD with COVID-19 Addendum: 05/09/21 at [address] Amended: Links added.
[2021-05-09] MEDS: DEXAMETHASONE 6 MG TABLET PO SCH ×2 (09:35→21:07)
[2021-05-09] MEDS: carVEDilol 3.125mg tablet PO SCH ×2 (09:35→21:07)
[2021-05-09] MEDS: loratadine 10mg tablet PO SCH (09:36)
[2021-05-09] MEDS: azithromycin 250mg tablet PO SCH (09:36)
[2021-05-09] MEDS: lactobacillus rhamnosus 10,000 MMU CELLS/CAPSULE PO SCH ×2 (09:37→21:07)
[2021-05-09] MEDS: pantoprazole 40mg Tablet.DR PO SCH (09:37)
[2021-05-09] MEDS: docusate sod 100mg capsule PO SCH ×2 (09:37→21:07)
[2021-05-09] MEDS: duloxetine 30mg CAPSULE.DR PO SCH (09:37)
[2021-05-09] MEDS: sevelamer carbonate 800mg tablet PO SCH ×4 (09:38→18:56)
[2021-05-09] MEDS: FLUoxetine 20mg capsule PO SCH (09:38)
[2021-05-09] MEDS: atorvastatin 20mg tablet PO SCH (09:38)
[2021-05-09] MEDS: calcitriol 0.25mcg capsule PO SCH (09:39)
[2021-05-09] MEDS: insulin Lispro (HumaLOG) vial - multi-dose SQ SCH ×3 (09:45→18:47)
[2021-05-09 11:30] VITALS: BP 139/76
[2021-05-09] MEDS: cefpodoxime proxetil 100mg tablet PO SCH ×2 (11:33→18:06)
--- NOTE | 2021-05-09 19:17 | NUR ---
REPORT GIVEN TO ELLIOTT VEGA, ALL QUESTIONS ANSWERED. PT DOING WELL, WEANING OXYGEN AT THIS TIME
[2021-05-09] MEDS: insulin glargine (Lantus) pen - multi-dose SQ SCH (21:05)
[2021-05-09] MEDS: gabapentin 100mg capsule PO SCH (21:07)
[2021-05-09] MEDS: temazepam 15mg capsule PO PRN (21:07)
[2021-05-09 22:00] VITALS: BP 130/88
[2021-05-10] VITALS (10 sets, daily range): BP systolic 120–166; BP diastolic 75–97
[2021-05-10] MEDS: proMETHazine 25mg tablet PO SCH ×4 (02:00→21:05)
--- NOTE | 2021-05-10 06:54 | NUR ---
Patient in room ORTHO 4009. I have received report from Pratima VEGA and had the opportunity to ask questions and assume patient care.
[2021-05-10] MEDS: ipratropium/albuterol 3ml nebule NEB SCH ×5 (07:43→23:00)
[2021-05-10] MEDS ORDERED: normal saline 1000ml 250 ML IV PRN (08:00)
[2021-05-10] MEDS ORDERED: EPOETIN ALFA-EPBX 20,000 UNIT/ML 1 ML MDV IV ONE (08:00)
[2021-05-10] MEDS ORDERED: heparin 1,000 units/ml 10ml inj IV ONE (08:00)
[2021-05-10] MEDS ORDERED: LIDOcaine 1% (10mg/ml) 2ml vial SQ ONE (08:00)
[2021-05-10] MEDS: calcitriol 0.25mcg capsule PO SCH (08:10)
[2021-05-10] MEDS: FLUoxetine 20mg capsule PO SCH (08:10)
[2021-05-10] MEDS: atorvastatin 20mg tablet PO SCH (08:10)
[2021-05-10] MEDS: azithromycin 250mg tablet PO SCH (08:10)
[2021-05-10] MEDS: cefpodoxime proxetil 100mg tablet PO SCH ×2 (08:10→17:13)
[2021-05-10] MEDS: carVEDilol 3.125mg tablet PO SCH ×2 (08:10→20:56)
[2021-05-10] MEDS: pantoprazole 40mg Tablet.DR PO SCH (08:11)
[2021-05-10] MEDS: loratadine 10mg tablet PO SCH (08:11)
[2021-05-10] MEDS: DEXAMETHASONE 6 MG TABLET PO SCH ×2 (08:11→21:04)
[2021-05-10] MEDS: lactobacillus rhamnosus 10,000 MMU CELLS/CAPSULE PO SCH ×2 (08:11→21:05)
[2021-05-10] MEDS: duloxetine 30mg CAPSULE.DR PO SCH (08:11)
[2021-05-10] MEDS: docusate sod 100mg capsule PO SCH ×2 (08:11→20:56)
[2021-05-10] MEDS: sevelamer carbonate 800mg tablet PO SCH ×3 (08:12→17:13)
[2021-05-10] MEDS: NUT.TX.IMP.RENAL FXN,LAC-REDUC (Nepro) 237 ML VANILLA PO SCH ×3 (08:14→18:00)
[2021-05-10 08:26] LABS: ALANINE AMINOTRANSFERASE 8 U/L (12-78); ALBUMIN 2.3 G/DL (3.4-5.0); ALBUMIN/GLOBULIN RATIO 0.5 (1.1-1.5); ALKALINE PHOSPHATASE 116 IU/L (46-116); ANION GAP 11 (8-16); ASPARTATE AMINO TRANSFERASE 18 U/L (10-37); BILIRUBIN,TOTAL 0.5 MG/DL (0.1-1.0); BLOOD UREA NITROGEN 55 MG/DL (7-18); BUN/CREATININE RATIO 8.7 (6.6-38.0); C-REACTIVE PROTEIN 3.42 MG/DL (0.0-0.5); CALCIUM 8.4 MG/DL (8.5-10.1); CHLORIDE 99 MMOL/L (99-107); GLUCOSE 196 MG/DL (70-104); POTASSIUM 4.9 MMOL/L (3.5-5.1); SODIUM 137 MMOL/L (135-145); TOTAL CARBON DIOXIDE 27.3 MMOL/L (24-32); TOTAL PROTEIN 6.6 G/DL (6.4-8.2); eGFR 7 ML/MIN
[2021-05-10] MEDS: insulin Lispro (HumaLOG) vial - multi-dose SQ SCH (08:30)
[2021-05-10 09:53] LABS: BASOPHILS % (AUTO) 0.1 % (0-1); EOSINOPHILS % (AUTO) 0 % (0-6); HEMATOCRIT 27.1 % (35.0-45.0); HEMOGLOBIN 8.7 g/dl (12.0-16.0); LYMPHOCYTES # (AUTO) 0.1 X10'3 (1.1-4.8); LYMPHOCYTES % (AUTO) 1.6 % (21-51); MEAN CORPUSCULAR HEMOGLOBIN 29.7 PG (27.0-31.0); MEAN CORPUSCULAR HGB CONC 32.1 g/dL (33.0-36.5); MEAN CORPUSCULAR VOLUME 92.6 FL (78-98); MONOCYTES # (AUTO) 0.3 X10'3 (0-0.9); MONOCYTES % (AUTO) 3.8 % (2-12); NEUTROPHILS # (AUTO) 8.3 X10'3 (1.8-7.7); NEUTROPHILS % (AUTO) 94.5 % (42-75); PLATELET COUNT 266 X10'3 (140-440); RED BLOOD COUNT 2.92 X10'6 (4.20-5.60); RED CELL DISTRIBUTION WIDTH 17.5 % (11.5-14.5); WHITE BLOOD COUNT 8.8 X10'3 (4.5-11.0)
[2021-05-10 10:09] LABS: D-DIMER 0.77 MG/L FEU (0-0.50)
[2021-05-10] MEDS: HYDROcodone/acetaminophen 10/325mg tab PO PRN ×2 (11:12→20:55)
--- NOTE | 2021-05-10 12:50 | NUR ---
NPO for Dialysis did not give Renvela
--- NOTE | 2021-05-10 14:28 | NUR ---
PAGER ID: [phone] MESSAGE: [phone] [id number] Re: [facility] [id number] patient went into Afib during dialysis HR 160's BP 105/73 Please call , Dr Craig was here and aware no new orders Tele strip in chart from Tele office Addendum: 05/10/21 at 1431 by Shantal Ibanez RN Dr Heaton aware states patient always does this when getting dialysis he is not concerned. continue to monitor.
--- NOTE | 2021-05-10 15:42 | NUR ---
PAGER ID: [phone] MESSAGE: Shantal Julien [phone] Re: [facility] [id number] Patient is going between Afib and VTAC with 20 second intervals of VTAC Addendum: 05/10/21 at 1554 by Shantal Ibanez RN Dr Heaton called back stated he is on Tele in the Tele office and has seen patients Tele strips and patient is now in SR. Dr Heaton wants us to continue to monitor patient has been doing this with Dialysis and he will speak to a solar installation foreman to come and consult on patient,. aware of current vitals of BP 102/74 HR 52 on our machine but irregular and he is aware patient complains of shortness of breath she is now on 8L via high gisela nasal canula and is 95%
--- NOTE | 2021-05-10 15:44 | NUR ---
patient current vitals are 102/74 HR 52 irregular 95% 8L via High gisela cannula
--- NOTE | 2021-05-10 16:53 | NUR ---
PAGER ID: [phone] MESSAGE: Maira [id number] Re: Mendenhall [id number] Back to having runs of VTAC current vitals BP 131/89 HR 142 90% 6L
[2021-05-10] MEDS ORDERED: magnesium 2GM in 50ml NS 50 ML IV ONE (17:00)
[2021-05-10] MEDS ORDERED: amiodarone 150mg/dext, iso-os 100 ML IV ONE (17:05)
--- NOTE | 2021-05-10 17:51 | NUR ---
PAGER ID: [phone] MESSAGE: Shantal Julien [phone] Re: [facility]all [id number] just verifying you don't want her transferred to Tele? Still trying to get IV Addendum: 05/10/21 at 1759 by Shantal Ibanez RN Dr Heaton would like patient transferred to tele aware we are still trying to get IV in patient for ACLS RN to give loading dose of amiodarone and then patient will receive PO. However, Patient is still going from [facility] to [facility] so he would like patient transferred. Jeet corea on PCU aware and [employer] aware.
[2021-05-10 18:00] LABS: MAGNESIUM 3.1 MG/DL (1.5-2.4); PHOSPHORUS 5.4 MG/DL (2.3-4.5)
--- NOTE | 2021-05-10 18:36 | NUR ---
Problems reprioritized. Patient report given, questions answered & plan of care reviewed with Lianet VEGA.
--- NOTE | 2021-05-10 18:39 | NUR ---
[id number] Armida Mendenhall. i saw mag order. her mag this morning was 3.1. do you still want us to give? thank you. #[phone] Chanelle
--- NOTE | 2021-05-10 18:39 | NUR ---
Berenice VEGA got IV started on patient. Spoke to Kayce VEGA and she will come up to the floor and administer Amiodarone per MD orders. Lianet VEGA aware
--- NOTE | 2021-05-10 18:58 | NUR ---
amiodarone gtt 150mg/100ml over 10 mins started @ 1858, 129/89 BP, 143 HR, 18 RR, 94% 10LNC ended @ 1908, 120/81 BP, 116 HR, 96% 10L NC, PT STABLE DURING INFUSING, tele box #[id number] pt in bed resting comfortably
[2021-05-10] MEDS: amiodarone 200mg tablet PO SCH (20:55)
[2021-05-10] MEDS: gabapentin 100mg capsule PO SCH (20:55)
[2021-05-10] MEDS ORDERED: warfarin 1mg tablet PO ONE (21:00)
[2021-05-10] MEDS: insulin glargine (Lantus) pen - multi-dose SQ SCH (21:01)
[2021-05-10] MEDS: temazepam 15mg capsule PO PRN (21:05)
[2021-05-11 02:00] VITALS: BP 150/78
[2021-05-11] MEDS: proMETHazine 25mg tablet PO SCH ×4 (02:00→20:45)
[2021-05-11] MEDS: HYDROcodone/acetaminophen 10/325mg tab PO PRN ×4 (02:27→23:15)
[2021-05-11 06:00] VITALS: BP 117/89
--- NOTE | 2021-05-11 06:28 | NUR ---
Problems reprioritized. Patient report given, questions answered & plan of care reviewed with aakash Bridges.
--- NOTE | 2021-05-11 06:31 | NUR ---
Patient in room ORTHO 4009B. I have received report from and had the opportunity to ask questions and assume patient care. Addendum: 05/11/21 at 0632 by Yuliana Hicks RN REC'D REPORT FORM GARY BANEGAS
[2021-05-11] MEDS: ipratropium/albuterol 3ml nebule NEB SCH ×5 (07:23→23:00)
[2021-05-11 07:37] LABS: BASOPHILS % (AUTO) 0.2 % (0-1); EOSINOPHILS # (AUTO) 0.1 X10'3 (0-0.9); EOSINOPHILS % (AUTO) 0.7 % (0-6); HEMATOCRIT 30.8 % (35.0-45.0); HEMOGLOBIN 9.8 g/dl (12.0-16.0); LYMPHOCYTES # (AUTO) 0.4 X10'3 (1.1-4.8); MEAN CORPUSCULAR HEMOGLOBIN 29.6 PG (27.0-31.0); MEAN CORPUSCULAR VOLUME 92.7 FL (78-98); MEAN PLATELET VOLUME 8.6 FL (7.4-10.4); MONOCYTES # (AUTO) 0.5 X10'3 (0-0.9); MONOCYTES % (AUTO) 5.1 % (2-12); PLATELET COUNT 208 X10'3 (140-440); RED BLOOD COUNT 3.32 X10'6 (4.20-5.60); RED CELL DISTRIBUTION WIDTH 17.6 % (11.5-14.5); WHITE BLOOD COUNT 8.9 X10'3 (4.5-11.0)
[2021-05-11 07:53] LABS: D-DIMER 0.48 MG/L FEU (0-0.50)
[2021-05-11] MEDS: loratadine 10mg tablet PO SCH (07:58)
[2021-05-11] MEDS: pantoprazole 40mg Tablet.DR PO SCH (07:58)
[2021-05-11] MEDS: docusate sod 100mg capsule PO SCH ×2 (07:58→20:45)
[2021-05-11] MEDS: calcitriol 0.25mcg capsule PO SCH (07:58)
[2021-05-11] MEDS: carVEDilol 3.125mg tablet PO SCH ×2 (07:59→20:45)
[2021-05-11] MEDS: lactobacillus rhamnosus 10,000 MMU CELLS/CAPSULE PO SCH ×2 (07:59→20:45)
[2021-05-11] MEDS: amiodarone 200mg tablet PO SCH ×2 (07:59→20:45)
[2021-05-11] MEDS: duloxetine 30mg CAPSULE.DR PO SCH (07:59)
[2021-05-11] MEDS: atorvastatin 20mg tablet PO SCH (08:00)
[2021-05-11] MEDS: NUT.TX.IMP.RENAL FXN,LAC-REDUC (Nepro) 237 ML VANILLA PO SCH ×2 (08:00→13:08)
[2021-05-11] MEDS: DEXAMETHASONE 6 MG TABLET PO SCH (08:00)
[2021-05-11] MEDS: FLUoxetine 20mg capsule PO SCH (08:00)
[2021-05-11] MEDS: cefpodoxime proxetil 100mg tablet PO SCH ×2 (08:01→17:45)
[2021-05-11] MEDS: azithromycin 250mg tablet PO SCH (08:01)
[2021-05-11] MEDS: sevelamer carbonate 800mg tablet PO SCH ×3 (08:01→18:30)
[2021-05-11 08:42] LABS: ALANINE AMINOTRANSFERASE 8 U/L (12-78); ALBUMIN 2.3 G/DL (3.4-5.0); ALBUMIN/GLOBULIN RATIO 0.5 (1.1-1.5); ALKALINE PHOSPHATASE 119 IU/L (46-116); ANION GAP 9 (8-16); ASPARTATE AMINO TRANSFERASE 10 U/L (10-37); BILIRUBIN,TOTAL 0.5 MG/DL (0.1-1.0); BLOOD UREA NITROGEN 34 MG/DL (7-18); BUN/CREATININE RATIO 7.9 (6.6-38.0); C-REACTIVE PROTEIN 2.19 MG/DL (0.0-0.5); CHLORIDE 101 MMOL/L (99-107); CREATININE 4.31 MG/DL (0.40-0.90); GLUCOSE 178 MG/DL (70-104); SODIUM 140 MMOL/L (135-145); TOTAL CARBON DIOXIDE 29.8 MMOL/L (24-32); TOTAL PROTEIN 6.6 G/DL (6.4-8.2); eGFR 11 ML/MIN
[2021-05-11 10:00] VITALS: BP 138/81
[2021-05-11] MEDS: insulin Lispro (HumaLOG) vial - multi-dose SQ SCH ×2 (13:21→19:05)
[2021-05-11 14:00] VITALS: BP 152/81
--- NOTE | 2021-05-11 14:35 | NUR ---
F/u 05/11: Pt PO slowly improving continues to fluctuate 11/ PM -05/08 PM 75-100% 4 meals w/ period 0% yesterday and 50% breakfast this AM. Mostly 0% Nepro ONS though occasionally consumes. Overall ~49% avg meals past 3 days w/ rare ONS intake partially meeting protein/kcal needs. RD attempted to contact pt regarding further food preferences via TC however unsuccessful at this time. RD d/w RN regarding stopping Nepro ONS if MD agreeable given mostly 0% intake this admit. Will trial vanilla shakes TIDWM for additional kcals/protein; would still partially meet protein needs but limited interventions given ONS refusal. LBM 05/09 receiving routine colace. Phos 5.4 yesterday down from 8.6 04/24 receiving renvela w/ meals. Will continue to monitor for further PO trends and protein/kcal needs this admit; if PO regresses or remains marginal may benefit from supplemental EN to optimize nutrition status. Recommendations: 1) Liberalize to regular diet given insufficient PO intake 12 days; encourage PO. Consider carb controlled/renal restrictions if PO consistently at least average 65% meals 2) trial vanilla shake TIDWM for additional kcals/protein given poor ONS intake hx 3) Routine Phos checks if MD agreeable; Phos binder w/ meals per MD 4) Routine bowel care 5) Scaled weight this admit; subsequent scaled wts w/ HD 6) DM education following official DM dx by physician, A1c 7.5% with PMH "prediabetes" takes Glyburide per EMR; pt reports "DM tendencies" this admit per RN 7) IF PO regresses or remains marginal consider supplemental NGTF to optimize nutrition status given prolonged poor PO intake on HD with COVID-19 IF within plan of care Addendum: 05/11/21 at [address] Amended: Links added.
[2021-05-11 18:00] VITALS: BP 153/83
--- NOTE | 2021-05-11 18:13 | NUR ---
Problems reprioritized. Patient report given, questions answered & plan of care reviewed with GARY BANEGAS.
[2021-05-11] MEDS: insulin glargine (Lantus) pen - multi-dose SQ SCH (20:42)
[2021-05-11] MEDS: gabapentin 100mg capsule PO SCH (20:45)
[2021-05-11] MEDS: dexamethasone 4mg tablet PO SCH (20:45)
[2021-05-11] MEDS: apixaban 2.5mg tablet PO SCH (20:45)
[2021-05-11] MEDS: temazepam 15mg capsule PO PRN (20:49)
[2021-05-11] MEDS ORDERED: warfarin 1mg tablet PO ONE (21:00)
[2021-05-11 22:00] VITALS: BP 112/73
[2021-05-12 02:00] VITALS: BP 126/60
[2021-05-12] MEDS: proMETHazine 25mg tablet PO SCH ×4 (02:00→21:43)
[2021-05-12] MEDS: HYDROcodone/acetaminophen 10/325mg tab PO PRN ×3 (03:39→21:57)
[2021-05-12 06:00] VITALS: BP 131/72
--- NOTE | 2021-05-12 06:22 | NUR ---
Problems reprioritized. Patient report given, questions answered & plan of care reviewed with GARY BABIN.
--- NOTE | 2021-05-12 06:30 | NUR ---
Patient in room ORTHO 4009B. I have received report from GARY BANEGAS and had the opportunity to ask questions and assume patient care.
[2021-05-12] MEDS: ipratropium/albuterol 3ml nebule NEB SCH ×5 (07:00→23:00)
[2021-05-12] MEDS: pantoprazole 40mg Tablet.DR PO SCH (07:52)
[2021-05-12] MEDS: docusate sod 100mg capsule PO SCH ×2 (07:53→21:43)
[2021-05-12] MEDS: loratadine 10mg tablet PO SCH (07:53)
[2021-05-12] MEDS: calcitriol 0.25mcg capsule PO SCH (07:53)
[2021-05-12] MEDS: lactobacillus rhamnosus 10,000 MMU CELLS/CAPSULE PO SCH ×2 (07:54→21:43)
[2021-05-12] MEDS: carVEDilol 3.125mg tablet PO SCH ×2 (07:54→21:43)
[2021-05-12] MEDS: amiodarone 200mg tablet PO SCH ×2 (07:54→21:42)
[2021-05-12] MEDS: duloxetine 30mg CAPSULE.DR PO SCH (07:55)
[2021-05-12] MEDS: FLUoxetine 20mg capsule PO SCH (07:55)
[2021-05-12] MEDS: dexamethasone 4mg tablet PO SCH ×2 (07:55→21:43)
[2021-05-12] MEDS: atorvastatin 20mg tablet PO SCH (07:56)
[2021-05-12] MEDS: apixaban 2.5mg tablet PO SCH ×2 (07:56→21:42)
[2021-05-12] MEDS: sevelamer carbonate 800mg tablet PO SCH ×3 (07:57→18:00)
[2021-05-12] MEDS: cefpodoxime proxetil 100mg tablet PO SCH ×2 (07:57→21:42)
[2021-05-12] MEDS: azithromycin 250mg tablet PO SCH (07:57)
[2021-05-12] MEDS ORDERED: LIDOcaine 1% (10mg/ml) 2ml vial SQ ONE (08:00)
[2021-05-12] MEDS ORDERED: EPOETIN ALFA-EPBX 20,000 UNIT/ML 1 ML MDV IV ONE (08:00)
[2021-05-12] MEDS ORDERED: heparin 1,000 units/ml 10ml inj IV ONE (08:00)
[2021-05-12] MEDS ORDERED: normal saline 1000ml 250 ML IV PRN (08:00)
[2021-05-12 09:22] LABS: BASOPHILS % (AUTO) 0.1 % (0-1); D-DIMER 0.84 MG/L FEU (0-0.50); EOSINOPHILS % (AUTO) 0.2 % (0-6); HEMATOCRIT 28.8 % (35.0-45.0); HEMOGLOBIN 9.2 g/dl (12.0-16.0); LYMPHOCYTES # (AUTO) 0.3 X10'3 (1.1-4.8); MEAN CORPUSCULAR HEMOGLOBIN 29.5 PG (27.0-31.0); MEAN CORPUSCULAR HGB CONC 31.9 g/dL (33.0-36.5); MEAN CORPUSCULAR VOLUME 92.5 FL (78-98); MEAN PLATELET VOLUME 8.9 FL (7.4-10.4); MONOCYTES # (AUTO) 0.5 X10'3 (0-0.9); NEUTROPHILS # (AUTO) 9.5 X10'3 (1.8-7.7); NEUTROPHILS % (AUTO) 91.7 % (42-75); PLATELET COUNT 251 X10'3 (140-440); RED BLOOD COUNT 3.11 X10'6 (4.20-5.60); RED CELL DISTRIBUTION WIDTH 17.6 % (11.5-14.5); WHITE BLOOD COUNT 10.4 X10'3 (4.5-11.0)
[2021-05-12 10:04] LABS: ALANINE AMINOTRANSFERASE 12 U/L (12-78); ALBUMIN 2.4 G/DL (3.4-5.0); ALBUMIN/GLOBULIN RATIO 0.6 (1.1-1.5); ALKALINE PHOSPHATASE 109 IU/L (46-116); ANION GAP 10 (8-16); ASPARTATE AMINO TRANSFERASE 12 U/L (10-37); BILIRUBIN,TOTAL 0.4 MG/DL (0.1-1.0); BLOOD UREA NITROGEN 55 MG/DL (7-18); BUN/CREATININE RATIO 9.5 (6.6-38.0); C-REACTIVE PROTEIN 1.41 MG/DL (0.0-0.5); CALCIUM 8.5 MG/DL (8.5-10.1); CHLORIDE 98 MMOL/L (99-107); CREATININE 5.76 MG/DL (0.40-0.90); GLUCOSE 218 MG/DL (70-104); POTASSIUM 4.6 MMOL/L (3.5-5.1); SODIUM 135 MMOL/L (135-145); TOTAL CARBON DIOXIDE 27.4 MMOL/L (24-32); TOTAL PROTEIN 6.4 G/DL (6.4-8.2); eGFR 8 ML/MIN
[2021-05-12] MEDS: insulin Lispro (HumaLOG) vial - multi-dose SQ SCH ×2 (10:42→15:19)
[2021-05-12 18:00] VITALS: BP 129/72
--- NOTE | 2021-05-12 18:00 | NUR ---
Renvela not given due to pt not eating due to dialysis
--- NOTE | 2021-05-12 18:35 | NUR ---
Patient in room ORTHO 4009. I have received report from Yuliana VEGA and had the opportunity to ask questions and assume patient care.
[2021-05-12] MEDS: insulin glargine (Lantus) pen - multi-dose SQ SCH (21:00)
[2021-05-12] MEDS: gabapentin 100mg capsule PO SCH (21:43)
[2021-05-12] MEDS: dextrose ORAL solution 15 GM/59 ML bottle PO PRN (21:51)
[2021-05-12 22:00] VITALS: BP 124/71
--- NOTE | 2021-05-12 22:45 | NUR ---
Pts blood sugar was 62 upon check around 2150 gave oral dex per MD orders blood sugar up to 86. Also gave pt a snack. Called MD regarding pts Lantus dose tonight. MD advised to give half the original amount which is 11 units.
[2021-05-12] MEDS ORDERED: insulin glargine (Lantus) pen - multi-dose SQ ONE (23:00)
[2021-05-12] MEDS: temazepam 15mg capsule PO PRN (23:22)
[2021-05-13 02:00] VITALS: BP 121/73
[2021-05-13] MEDS: proMETHazine 25mg tablet PO SCH ×4 (02:21→20:51)
[2021-05-13] MEDS: HYDROcodone/acetaminophen 10/325mg tab PO PRN ×4 (04:46→19:08)
[2021-05-13 06:00] VITALS: BP 145/72
--- NOTE | 2021-05-13 06:28 | NUR ---
Problems reprioritized. Patient report given, questions answered & plan of care reviewed with Natacha VEGA.
--- NOTE | 2021-05-13 06:36 | NUR ---
Patient in room ORTHO 4009. I have received report from Erika VEGA and had the opportunity to ask questions and assume patient care.
[2021-05-13] MEDS: ipratropium/albuterol 3ml nebule NEB SCH ×4 (07:00→21:26)
[2021-05-13] MEDS: sevelamer carbonate 800mg tablet PO SCH ×3 (07:19→19:08)
[2021-05-13] MEDS: lactobacillus rhamnosus 10,000 MMU CELLS/CAPSULE PO SCH ×2 (07:19→20:51)
[2021-05-13] MEDS: atorvastatin 20mg tablet PO SCH (07:19)
[2021-05-13] MEDS: apixaban 2.5mg tablet PO SCH ×2 (07:19→20:51)
[2021-05-13] MEDS: loratadine 10mg tablet PO SCH (07:19)
[2021-05-13] MEDS: amiodarone 200mg tablet PO SCH ×2 (07:19→20:51)
[2021-05-13] MEDS: pantoprazole 40mg Tablet.DR PO SCH (07:20)
[2021-05-13] MEDS: calcitriol 0.25mcg capsule PO SCH (07:20)
[2021-05-13] MEDS: docusate sod 100mg capsule PO SCH ×2 (07:20→20:51)
[2021-05-13] MEDS: dexamethasone 4mg tablet PO SCH ×2 (07:20→20:51)
[2021-05-13] MEDS: azithromycin 250mg tablet PO SCH (07:20)
[2021-05-13] MEDS: FLUoxetine 20mg capsule PO SCH (07:20)
[2021-05-13] MEDS: duloxetine 30mg CAPSULE.DR PO SCH (07:20)
[2021-05-13] MEDS: carVEDilol 3.125mg tablet PO SCH ×2 (07:20→20:51)
[2021-05-13 07:34] LABS: BASOPHILS % (AUTO) 0.3 % (0-1); EOSINOPHILS # (AUTO) 0.1 X10'3 (0-0.9); EOSINOPHILS % (AUTO) 1.1 % (0-6); HEMATOCRIT 31.8 % (35.0-45.0); HEMOGLOBIN 10.2 g/dl (12.0-16.0); LYMPHOCYTES # (AUTO) 0.3 X10'3 (1.1-4.8); LYMPHOCYTES % (AUTO) 3.2 % (21-51); MEAN CORPUSCULAR HEMOGLOBIN 29.6 PG (27.0-31.0); MEAN CORPUSCULAR HGB CONC 31.9 g/dL (33.0-36.5); MEAN CORPUSCULAR VOLUME 92.6 FL (78-98); MEAN PLATELET VOLUME 8.9 FL (7.4-10.4); MONOCYTES # (AUTO) 0.3 X10'3 (0-0.9); MONOCYTES % (AUTO) 3.5 % (2-12); NEUTROPHILS # (AUTO) 8.2 X10'3 (1.8-7.7); NEUTROPHILS % (AUTO) 91.9 % (42-75); PLATELET COUNT 176 X10'3 (140-440); RED BLOOD COUNT 3.44 X10'6 (4.20-5.60); RED CELL DISTRIBUTION WIDTH 17.2 % (11.5-14.5); WHITE BLOOD COUNT 8.9 X10'3 (4.5-11.0)
[2021-05-13 07:57] LABS: ALANINE AMINOTRANSFERASE 7 U/L (12-78); ALBUMIN 2.5 G/DL (3.4-5.0); ALBUMIN/GLOBULIN RATIO 0.6 (1.1-1.5); ALKALINE PHOSPHATASE 123 IU/L (46-116); ANION GAP 9 (8-16); ASPARTATE AMINO TRANSFERASE 11 U/L (10-37); BILIRUBIN,TOTAL 0.4 MG/DL (0.1-1.0); BLOOD UREA NITROGEN 28 MG/DL (7-18); BUN/CREATININE RATIO 7.7 (6.6-38.0); CALCIUM 9.1 MG/DL (8.5-10.1); CHLORIDE 100 MMOL/L (99-107); CREATININE 3.65 MG/DL (0.40-0.90); GLUCOSE 194 MG/DL (70-104); POTASSIUM 4.2 MMOL/L (3.5-5.1); SODIUM 139 MMOL/L (135-145); TOTAL CARBON DIOXIDE 29.6 MMOL/L (24-32); TOTAL PROTEIN 6.9 G/DL (6.4-8.2); eGFR 13 ML/MIN
[2021-05-13] MEDS: cefpodoxime proxetil 100mg tablet PO SCH ×2 (09:05→17:15)
[2021-05-13] MEDS: insulin Lispro (HumaLOG) vial - multi-dose SQ SCH ×2 (09:45→14:01)
[2021-05-13 10:00] VITALS: BP 141/80
[2021-05-13 14:00] VITALS: BP 131/68
[2021-05-13 18:00] VITALS: BP 139/78
--- NOTE | 2021-05-13 18:27 | NUR ---
Problems reprioritized. Patient report given, questions answered & plan of care reviewed with Erika VEGA.
--- NOTE | 2021-05-13 18:45 | NUR ---
Patient in room ORTHO 4009. I have received report from Trice VEGA and had the opportunity to ask questions and assume patient care.
[2021-05-13] MEDS: gabapentin 100mg capsule PO SCH (20:51)
[2021-05-13] MEDS: insulin glargine (Lantus) pen - multi-dose SQ SCH (20:58)
[2021-05-13] MEDS: temazepam 15mg capsule PO PRN (21:00)
[2021-05-13 22:17] VITALS: BP 157/81
[2021-05-14 02:05] VITALS: BP 149/77
[2021-05-14] MEDS: HYDROcodone/acetaminophen 10/325mg tab PO PRN ×3 (02:54→23:27)
[2021-05-14] MEDS: proMETHazine 25mg tablet PO SCH ×4 (02:54→21:14)
[2021-05-14 06:00] VITALS: BP 147/82
--- NOTE | 2021-05-14 06:21 | NUR ---
Problems reprioritized. Patient report given, questions answered & plan of care reviewed with Trice VEGA.
[2021-05-14] MEDS: ipratropium/albuterol 3ml nebule NEB SCH ×4 (07:00→19:45)
[2021-05-14] MEDS ORDERED: heparin 1,000 units/ml 10ml inj IV ONE (08:00)
[2021-05-14] MEDS ORDERED: LIDOcaine 1% (10mg/ml) 2ml vial SQ ONE (08:00)
[2021-05-14] MEDS ORDERED: normal saline 1000ml 250 ML IV PRN (08:00)
[2021-05-14] MEDS: carVEDilol 3.125mg tablet PO SCH ×2 (08:00→21:14)
[2021-05-14] MEDS ORDERED: EPOETIN ALFA-EPBX 20,000 UNIT/ML 1 ML MDV IV ONE (08:00)
[2021-05-14 08:54] LABS: ALANINE AMINOTRANSFERASE 10 U/L (12-78); ALBUMIN 2.4 G/DL (3.4-5.0); ALBUMIN/GLOBULIN RATIO 0.6 (1.1-1.5); ALKALINE PHOSPHATASE 106 IU/L (46-116); ANION GAP 9 (8-16); ASPARTATE AMINO TRANSFERASE 15 U/L (10-37); BILIRUBIN,TOTAL 0.4 MG/DL (0.1-1.0); BLOOD UREA NITROGEN 44 MG/DL (7-18); BUN/CREATININE RATIO 8.7 (6.6-38.0); CALCIUM 8.8 MG/DL (8.5-10.1); CHLORIDE 97 MMOL/L (99-107); CREATININE 5.04 MG/DL (0.40-0.90); GLUCOSE 166 MG/DL (70-104); POTASSIUM 4.9 MMOL/L (3.5-5.1); SODIUM 132 MMOL/L (135-145); TOTAL CARBON DIOXIDE 26.3 MMOL/L (24-32); TOTAL PROTEIN 6.4 G/DL (6.4-8.2); eGFR 9 ML/MIN
[2021-05-14 08:56] LABS: C-REACTIVE PROTEIN 1.43 MG/DL (0.0-0.5)
[2021-05-14 09:08] LABS: BASOPHILS % (AUTO) 0.2 % (0-1); EOSINOPHILS # (AUTO) 0.1 X10'3 (0-0.9); EOSINOPHILS % (AUTO) 0.7 % (0-6); HEMATOCRIT 31.2 % (35.0-45.0); HEMOGLOBIN 9.9 g/dl (12.0-16.0); LYMPHOCYTES # (AUTO) 0.3 X10'3 (1.1-4.8); LYMPHOCYTES % (AUTO) 3.6 % (21-51); MEAN CORPUSCULAR HEMOGLOBIN 29.5 PG (27.0-31.0); MEAN CORPUSCULAR HGB CONC 31.9 g/dL (33.0-36.5); MEAN CORPUSCULAR VOLUME 92.7 FL (78-98); MEAN PLATELET VOLUME 8.7 FL (7.4-10.4); MONOCYTES # (AUTO) 0.3 X10'3 (0-0.9); MONOCYTES % (AUTO) 3.7 % (2-12); NEUTROPHILS # (AUTO) 7.4 X10'3 (1.8-7.7); NEUTROPHILS % (AUTO) 91.8 % (42-75); PLATELET COUNT 175 X10'3 (140-440); RED BLOOD COUNT 3.37 X10'6 (4.20-5.60); WHITE BLOOD COUNT 8.1 X10'3 (4.5-11.0)
[2021-05-14 09:17] LABS: D-DIMER 0.51 MG/L FEU (0-0.50)
[2021-05-14] MEDS: loratadine 10mg tablet PO SCH (09:22)
[2021-05-14] MEDS: cefpodoxime proxetil 100mg tablet PO SCH ×2 (09:22→17:08)
[2021-05-14] MEDS: lactobacillus rhamnosus 10,000 MMU CELLS/CAPSULE PO SCH ×2 (09:22→21:14)
[2021-05-14] MEDS: apixaban 2.5mg tablet PO SCH ×2 (09:22→21:15)
[2021-05-14] MEDS: pantoprazole 40mg Tablet.DR PO SCH (09:22)
[2021-05-14] MEDS: dexamethasone 4mg tablet PO SCH (09:23)
[2021-05-14] MEDS: docusate sod 100mg capsule PO SCH ×2 (09:23→21:14)
[2021-05-14] MEDS: azithromycin 250mg tablet PO SCH (09:23)
[2021-05-14] MEDS: atorvastatin 20mg tablet PO SCH (09:23)
[2021-05-14] MEDS: FLUoxetine 20mg capsule PO SCH (09:23)
[2021-05-14] MEDS: duloxetine 30mg CAPSULE.DR PO SCH (09:23)
[2021-05-14] MEDS: amiodarone 200mg tablet PO SCH ×2 (09:23→21:14)
[2021-05-14] MEDS: calcitriol 0.25mcg capsule PO SCH (09:24)
[2021-05-14] MEDS: sevelamer carbonate 800mg tablet PO SCH ×3 (09:25→17:35)
[2021-05-14 09:55] VITALS: BP 132/79
[2021-05-14] MEDS: insulin Lispro (HumaLOG) vial - multi-dose SQ SCH (10:25)
[2021-05-14 14:00] VITALS: BP 136/75
--- NOTE | 2021-05-14 14:33 | NUR ---
F/u 05/14: Pt PO regressed past 3.5 days mostly 0% w/ occasional 25% continues to not meet needs this admit. Vanilla shakes not in [employer] on RD review this afternoon; dietary notified will restart trial in hopes of some additional protein/kcal intake. Noted pt only small BM's since admit 20 days w/ last 05/[address] attempted to contact pt via TC for food preferences however no answer. RD d/w RN regarding additional bowel care as well as appetite stimulant if MD agreeable in hopes of assisting PO intake. PRN MoM last given 04/30 and PRN dulcolax available never given per EMR. Pt on 5L NC per EMR but previously refusing ONS so not appropriate to recommend at this time. Will continue to monitor for additional protein/kcal needs. Recommendations: 1) Liberalize to regular diet given insufficient PO intake 12 days; encourage PO; encourage PO 2) trial vanilla shake TIDWM for additional kcals/protein given poor ONS intake hx; encourage PO 3) appetite stimulant if MD Agreeable given poor PO intake this admit 4) Routine Phos checks if MD agreeable on HD; Phos binder w/ meals per MD 5) Routine bowel care; consider additional only small BM's documented this admit 20 days 6) Scaled weight this admit; subsequent scaled wts w/ HD 7) DM education following official DM dx by physician, A1c 7.5% with PMH "prediabetes" takes Glyburide per EMR; pt reports "DM tendencies" this admit per RN 7) IF PO remains poor consider supplemental NGTF to optimize nutrition status given prolonged poor PO intake on HD with COVID-19 IF within plan of care Addendum: 05/14/21 at [address] Amended: Links added. Addendum: 05/14/21 at [address] F/u 05/14: Pt PO regressed past 3.5 days mostly 0% w/ occasional 25% continues to not meet needs this admit. Vanilla shakes not in [employer] on RD review this afternoon; dietary notified will restart trial in hopes of some additional protein/kcal intake. Noted pt only small BM's since admit 20 days w/ last 05/[address] attempted to contact pt via TC for food preferences however no answer. RD d/w RN regarding additional bowel care as well as appetite stimulant if MD agreeable in hopes of assisting PO intake. RD also d/w RN poor PO hx this admit would benefit from supplemental NG nutrition to optimize nutrition status on HD w/ COVID-19 DX. RN reports pt likely to improve PO w/ encouragement and will encourage pt supper intake tonight. Will monitor for PO trends w/ encouragement for additional nutrition needs. PRN MoM last given 04/30 and PRN dulcolax available never given per EMR. Pt on 5L NC per EMR but previously refusing ONS so not appropriate to recommend at this time. Will continue to monitor for additional protein/kcal needs. Recommendations: 1) Liberalize to regular diet given insufficient PO intake 12 days; encourage PO; encourage PO 2) trial vanilla shake TIDWM for additional kcals/protein given poor ONS intake hx; encourage PO 3) appetite stimulant if MD agreeable given poor PO intake this admit 4) Routine Phos checks if MD agreeable on HD; Phos binder w/ meals per MD 5) Routine bowel care; consider additional only small BM's documented this admit 20 days 6) Scaled weight this admit; subsequent scaled wts w/ HD 7) DM education following official DM dx by physician, A1c 7.5% with PMH "prediabetes" takes Glyburide per EMR; pt reports "DM tendencies" this admit per RN 7) IF PO remains poor consider supplemental NGTF to optimize nutrition status given prolonged poor PO intake on HD with COVID-19 IF within plan of care
[2021-05-14] MEDS: magnesium hydroxide 30ml (MOM) UD suspension PO PRN (15:40)
[2021-05-14 18:00] VITALS: BP 126/72
--- NOTE | 2021-05-14 18:51 | NUR ---
Patient in room ORTHO 4009. I have received report from Trice VEGA and had the opportunity to ask questions and assume patient care.
--- NOTE | 2021-05-14 19:07 | NUR ---
Problems reprioritized. Patient report given, questions answered & plan of care reviewed with Erika VEGA.
[2021-05-14] MEDS: dexamethasone 1mg tablet PO SCH (21:14)
[2021-05-14] MEDS: gabapentin 100mg capsule PO SCH (21:15)
[2021-05-14] MEDS: insulin glargine (Lantus) pen - multi-dose SQ SCH (21:18)
[2021-05-14] MEDS: temazepam 15mg capsule PO PRN (21:24)
[2021-05-14 22:00] VITALS: BP 155/70
[2021-05-15] MEDS: proMETHazine 25mg tablet PO SCH ×4 (02:15→20:43)
[2021-05-15 02:22] VITALS: BP 139/78
[2021-05-15 06:00] VITALS: BP 120/60
--- NOTE | 2021-05-15 06:30 | NUR ---
Problems reprioritized. Patient report given, questions answered & plan of care reviewed with Ange VEGA.
--- NOTE | 2021-05-15 06:37 | NUR ---
Patient in room ORTHO 4009. I have received report from GARY James and had the opportunity to ask questions and assume patient care.
[2021-05-15] MEDS: ipratropium/albuterol 3ml nebule NEB SCH ×4 (07:00→19:37)
[2021-05-15] MEDS: amiodarone 200mg tablet PO SCH ×2 (08:19→20:43)
[2021-05-15] MEDS: duloxetine 30mg CAPSULE.DR PO SCH (08:19)
[2021-05-15] MEDS: calcitriol 0.25mcg capsule PO SCH (08:19)
[2021-05-15] MEDS: loratadine 10mg tablet PO SCH (08:19)
[2021-05-15] MEDS: pantoprazole 40mg Tablet.DR PO SCH (08:20)
[2021-05-15] MEDS: dexamethasone 1mg tablet PO SCH ×2 (08:20→20:44)
[2021-05-15] MEDS: atorvastatin 20mg tablet PO SCH (08:20)
[2021-05-15] MEDS: sevelamer carbonate 800mg tablet PO SCH ×3 (08:20→17:29)
[2021-05-15] MEDS: cefpodoxime proxetil 100mg tablet PO SCH ×2 (08:20→17:29)
[2021-05-15] MEDS: docusate sod 100mg capsule PO SCH ×2 (08:20→20:43)
[2021-05-15] MEDS: carVEDilol 3.125mg tablet PO SCH ×2 (08:20→20:43)
[2021-05-15] MEDS: apixaban 2.5mg tablet PO SCH ×2 (08:20→20:43)
[2021-05-15] MEDS: lactobacillus rhamnosus 10,000 MMU CELLS/CAPSULE PO SCH ×2 (08:20→20:43)
[2021-05-15] MEDS: azithromycin 250mg tablet PO SCH (08:20)
[2021-05-15] MEDS: FLUoxetine 20mg capsule PO SCH (08:20)
[2021-05-15] MEDS: insulin Lispro (HumaLOG) vial - multi-dose SQ SCH ×3 (08:32→18:57)
[2021-05-15] MEDS: HYDROcodone/acetaminophen 10/325mg tab PO PRN ×3 (08:36→17:31)
[2021-05-15 10:00] VITALS: BP 98/65
[2021-05-15 14:00] VITALS: BP 111/60
[2021-05-15] MEDS: dextrose ORAL solution 15 GM/59 ML bottle PO PRN ×2 (17:32→17:47)
[2021-05-15 18:00] VITALS: BP 116/69
--- NOTE | 2021-05-15 18:09 | NUR ---
Problems reprioritized. Patient report given, questions answered & plan of care reviewed with GARY Carver.
[2021-05-15] MEDS: gabapentin 100mg capsule PO SCH (20:43)
[2021-05-15] MEDS: insulin glargine (Lantus) pen - multi-dose SQ SCH (20:54)
[2021-05-15] MEDS: temazepam 15mg capsule PO PRN (20:59)
[2021-05-15 22:00] VITALS: BP 124/65
[2021-05-16 02:00] VITALS: BP 144/81
[2021-05-16] MEDS: proMETHazine 25mg tablet PO SCH ×3 (02:28→13:07)
[2021-05-16] MEDS: HYDROcodone/acetaminophen 10/325mg tab PO PRN ×3 (04:22→21:07)
--- NOTE | 2021-05-16 06:30 | NUR ---
Problems reprioritized. Patient report given, questions answered & plan of care reviewed with GARY Lofton.
--- NOTE | 2021-05-16 06:36 | NUR ---
Patient in room ORTHO 4009. I have received report from Wen VEGA and had the opportunity to ask questions and assume patient care.
[2021-05-16 06:54] VITALS: BP 154/84
[2021-05-16 07:55] LABS: HEMOGLOBIN 9.8 g/dl (12.0-16.0); LYMPHOCYTES # (AUTO) 0.3 X10'3 (1.1-4.8); MEAN PLATELET VOLUME 9.6 FL (7.4-10.4); PLATELET COUNT 120 X10'3 (140-440)
[2021-05-16 07:57] LABS: BASOPHILS % (AUTO) 0 % (0-1); EOSINOPHILS # (AUTO) 0.2 X10'3 (0-0.9); EOSINOPHILS % (AUTO) 1.8 % (0-6); HEMATOCRIT 31.2 % (35.0-45.0); MEAN CORPUSCULAR HEMOGLOBIN 29.2 PG (27.0-31.0); MEAN CORPUSCULAR HGB CONC 31.5 g/dL (33.0-36.5); MEAN CORPUSCULAR VOLUME 92.9 FL (78-98); MONOCYTES # (AUTO) 0.3 X10'3 (0-0.9); MONOCYTES % (AUTO) 3.6 % (2-12); NEUTROPHILS # (AUTO) 7.9 X10'3 (1.8-7.7); NEUTROPHILS % (AUTO) 90.6 % (42-75); RED BLOOD COUNT 3.35 X10'6 (4.20-5.60); RED CELL DISTRIBUTION WIDTH 17.3 % (11.5-14.5); WHITE BLOOD COUNT 8.7 X10'3 (4.5-11.0)
[2021-05-16] MEDS: amiodarone 200mg tablet PO SCH ×2 (08:00→20:55)
[2021-05-16 08:05] LABS: D-DIMER 14.38 MG/L FEU (0-0.50)
[2021-05-16] MEDS: ipratropium/albuterol 3ml nebule NEB SCH ×5 (08:19→23:00)
[2021-05-16 08:20] LABS: ALBUMIN 2.6 G/DL (3.4-5.0); ANION GAP 10 (8-16); BILIRUBIN,TOTAL 0.4 MG/DL (0.1-1.0); BLOOD UREA NITROGEN 44 MG/DL (7-18); BUN/CREATININE RATIO 9.1 (6.6-38.0); C-REACTIVE PROTEIN 0.75 MG/DL (0.0-0.5); CALCIUM 9.3 MG/DL (8.5-10.1); CHLORIDE 99 MMOL/L (99-107); CREATININE 4.86 MG/DL (0.40-0.90); GLUCOSE 99 MG/DL (70-104); POTASSIUM 4.9 MMOL/L (3.5-5.1); SODIUM 138 MMOL/L (135-145); TOTAL CARBON DIOXIDE 29.2 MMOL/L (24-32); TOTAL PROTEIN 6.4 G/DL (6.4-8.2); eGFR 9 ML/MIN
[2021-05-16 08:21] LABS: ALANINE AMINOTRANSFERASE 8 U/L (12-78); ALBUMIN/GLOBULIN RATIO 0.7 (1.1-1.5); ALKALINE PHOSPHATASE 130 IU/L (46-116); ASPARTATE AMINO TRANSFERASE 19 U/L (10-37)
[2021-05-16] MEDS: calcitriol 0.25mcg capsule PO SCH (09:02)
[2021-05-16] MEDS: sevelamer carbonate 800mg tablet PO SCH ×3 (09:03→17:40)
[2021-05-16] MEDS: pantoprazole 40mg Tablet.DR PO SCH (09:03)
[2021-05-16] MEDS: docusate sod 100mg capsule PO SCH ×2 (09:03→20:55)
[2021-05-16] MEDS: duloxetine 30mg CAPSULE.DR PO SCH (09:03)
[2021-05-16] MEDS: lactobacillus rhamnosus 10,000 MMU CELLS/CAPSULE PO SCH ×2 (09:04→20:55)
[2021-05-16] MEDS: atorvastatin 20mg tablet PO SCH (09:05)
[2021-05-16] MEDS: dexamethasone 1mg tablet PO SCH ×2 (09:05→20:55)
[2021-05-16] MEDS: apixaban 2.5mg tablet PO SCH ×2 (09:06→20:55)
[2021-05-16] MEDS: cefpodoxime proxetil 100mg tablet PO SCH ×2 (09:06→17:39)
[2021-05-16] MEDS: azithromycin 250mg tablet PO SCH (09:06)
[2021-05-16] MEDS: carVEDilol 3.125mg tablet PO SCH ×2 (09:06→20:55)
[2021-05-16] MEDS: loratadine 10mg tablet PO SCH (09:07)
[2021-05-16] MEDS: FLUoxetine 20mg capsule PO SCH (09:07)
--- NOTE | 2021-05-16 10:00 | NUR ---
The amount of carb intake for patient was not able to accurately found so treatment of the carb intake will not be done during this mornings hour and will resume at lunch time.
[2021-05-16 10:34] VITALS: BP 118/62
[2021-05-16] MEDS: insulin Lispro (HumaLOG) vial - multi-dose SQ SCH ×2 (13:42→19:07)
[2021-05-16 15:38] VITALS: BP 134/77
[2021-05-16] MEDS ORDERED: proMETHazine 25mg tablet PO PRN (16:40)
[2021-05-16 18:00] VITALS: BP 151/85
--- NOTE | 2021-05-16 18:26 | NUR ---
Problems reprioritized. Patient report given, questions answered & plan of care reviewed with Wen VEGA.
[2021-05-16] MEDS: temazepam 15mg capsule PO PRN (20:55)
[2021-05-16] MEDS: gabapentin 100mg capsule PO SCH (20:55)
[2021-05-16] MEDS: insulin glargine (Lantus) pen - multi-dose SQ SCH (21:05)
[2021-05-16 22:00] VITALS: BP 133/71
[2021-05-17 02:00] VITALS: BP 150/88
[2021-05-17 06:00] VITALS: BP 143/68
--- NOTE | 2021-05-17 06:39 | NUR ---
Problems reprioritized. Patient report given, questions answered & plan of care reviewed with GARY Meraz.
--- NOTE | 2021-05-17 06:49 | NUR ---
Patient in room ORTHO 4009B. I have received report from GARY CHIRINOS and had the opportunity to ask questions and assume patient care.
[2021-05-17 07:09] LABS: BASOPHILS % (AUTO) 0.3 % (0-1); EOSINOPHILS % (AUTO) 0.3 % (0-6); HEMATOCRIT 34.6 % (35.0-45.0); LYMPHOCYTES # (AUTO) 0.4 X10'3 (1.1-4.8); LYMPHOCYTES % (AUTO) 3.7 % (21-51); MEAN CORPUSCULAR HEMOGLOBIN 29.6 PG (27.0-31.0); MEAN CORPUSCULAR HGB CONC 31.8 g/dL (33.0-36.5); MEAN CORPUSCULAR VOLUME 93.1 FL (78-98); MEAN PLATELET VOLUME 9.4 FL (7.4-10.4); MONOCYTES # (AUTO) 0.5 X10'3 (0-0.9); MONOCYTES % (AUTO) 4.9 % (2-12); NEUTROPHILS # (AUTO) 8.9 X10'3 (1.8-7.7); NEUTROPHILS % (AUTO) 90.8 % (42-75); PLATELET COUNT 164 X10'3 (140-440); RED BLOOD COUNT 3.72 X10'6 (4.20-5.60); RED CELL DISTRIBUTION WIDTH 17.6 % (11.5-14.5); WHITE BLOOD COUNT 9.8 X10'3 (4.5-11.0)
[2021-05-17] MEDS ORDERED: albumin (human) 25% 100ml IV 100 ML IV PRN (08:00)
[2021-05-17] MEDS ORDERED: EPOETIN ALFA-EPBX 20,000 UNIT/ML 1 ML MDV IV ONE (08:00)
[2021-05-17] MEDS: insulin Lispro (HumaLOG) vial - multi-dose SQ SCH (08:52)
[2021-05-17] MEDS: calcitriol 0.25mcg capsule PO SCH (08:53)
[2021-05-17] MEDS: loratadine 10mg tablet PO SCH (08:53)
[2021-05-17] MEDS: carVEDilol 3.125mg tablet PO SCH ×2 (08:53→21:39)
[2021-05-17] MEDS: apixaban 2.5mg tablet PO SCH ×2 (08:53→21:39)
[2021-05-17] MEDS: lactobacillus rhamnosus 10,000 MMU CELLS/CAPSULE PO SCH ×2 (08:53→21:39)
[2021-05-17] MEDS: docusate sod 100mg capsule PO SCH ×2 (08:53→21:39)
[2021-05-17] MEDS: FLUoxetine 20mg capsule PO SCH (08:53)
[2021-05-17] MEDS: amiodarone 200mg tablet PO SCH ×2 (08:53→21:39)
[2021-05-17] MEDS: dexamethasone 1mg tablet PO SCH ×2 (08:54→21:39)
[2021-05-17] MEDS: atorvastatin 20mg tablet PO SCH (08:54)
[2021-05-17] MEDS: sevelamer carbonate 800mg tablet PO SCH ×3 (08:54→18:00)
[2021-05-17] MEDS: duloxetine 30mg CAPSULE.DR PO SCH (08:54)
[2021-05-17] MEDS: ipratropium/albuterol 3ml nebule NEB SCH ×5 (09:03→23:15)
[2021-05-17 09:14] LABS: ALANINE AMINOTRANSFERASE 8 U/L (12-78); ALBUMIN 2.2 G/DL (3.4-5.0); ALBUMIN/GLOBULIN RATIO 0.6 (1.1-1.5); ALKALINE PHOSPHATASE 113 IU/L (46-116); ANION GAP 8 (8-16); ASPARTATE AMINO TRANSFERASE 10 U/L (10-37); BILIRUBIN,TOTAL 0.4 MG/DL (0.1-1.0); BLOOD UREA NITROGEN 59 MG/DL (7-18); BUN/CREATININE RATIO 9.5 (6.6-38.0); C-REACTIVE PROTEIN 0.42 MG/DL (0.0-0.5); CALCIUM 8.8 MG/DL (8.5-10.1); CHLORIDE 96 MMOL/L (99-107); CREATININE 6.24 MG/DL (0.40-0.90); GLUCOSE 177 MG/DL (70-104); PHOSPHORUS 4.6 MG/DL (2.3-4.5); POTASSIUM 4.9 MMOL/L (3.5-5.1); SODIUM 131 MMOL/L (135-145); TOTAL PROTEIN 5.9 G/DL (6.4-8.2); eGFR 7 ML/MIN
--- NOTE | 2021-05-17 09:31 | NUR ---
F/u 05/17: Pt PO intake has improved some, now avg 50% x 9 meals on Renal diet w/ Vanilla Shakes TID partially meeting needs. Pt continues on HD w/ MWF schedule per MD note. Pt may benefit from liberalization to Regular diet given poor PO hx and increased protein needs on HD. IF PO continues to improve may consider additional meal interventions if consistent w/ diet order. LBM 05/16 receiving routine colace. Will continue to monitor. Recommendations: 1) Liberalize to regular diet given insufficient PO intake 14 days; encourage PO 2) Vanilla shake TIDWM for additional kcals/protein given poor ONS intake hx; encourage PO 3) appetite stimulant if MD agreeable given poor PO intake this admit 4) Routine Phos checks if MD agreeable on HD; Phos binder w/ meals per MD 5) Routine bowel care; consider additional only small BM's documented this admit 20 days 6) Scaled weight this admit; subsequent scaled wts w/ HD 7) DM education following official DM dx by physician, A1c 7.5% with [facility] "prediabetes" takes Glyburide per EMR; pt reports "DM tendencies" this admit per RN 7) IF PO remains poor consider supplemental NGTF to optimize nutrition status given prolonged poor PO intake on HD with COVID-19 IF within plan of care Addendum: 05/17/21 at [address] Amended: Links added.
[2021-05-17 10:00] VITALS: BP 140/80
[2021-05-17] MEDS ORDERED: LIDOcaine 1% (10mg/ml) 2ml vial SQ ONE (10:40)
[2021-05-17 10:43] LABS: D-DIMER 1.52 MG/L FEU (0-0.50)
[2021-05-17] MEDS: HYDROcodone/acetaminophen 10/325mg tab PO PRN ×2 (10:59→17:10)
[2021-05-17 14:00] VITALS: BP 99/66
[2021-05-17] MEDS: pantoprazole 40mg Tablet.DR PO SCH (15:50)
[2021-05-17 18:15] VITALS: BP 144/79
[2021-05-17] MEDS ORDERED: morphine 2 MG/ML inj. syringe IV PRN (18:30)
--- NOTE | 2021-05-17 19:11 | NUR ---
Problems reprioritized. Patient report given, questions answered & plan of care reviewed with GARY GALLAGHER.
[2021-05-17] MEDS: insulin glargine (Lantus) pen - multi-dose SQ SCH (21:35)
[2021-05-17] MEDS: gabapentin 100mg capsule PO SCH (21:39)
[2021-05-17] MEDS: temazepam 15mg capsule PO PRN (21:47)
[2021-05-17 22:00] VITALS: BP 144/79
[2021-05-18 02:00] VITALS: BP 157/84
[2021-05-18 06:45] VITALS: BP 132/63
[2021-05-18 08:11] LABS: BASOPHILS % (AUTO) 0.3 % (0-1); EOSINOPHILS # (AUTO) 0.1 X10'3 (0-0.9); EOSINOPHILS % (AUTO) 1.5 % (0-6); HEMATOCRIT 32.9 % (35.0-45.0); HEMOGLOBIN 10.3 g/dl (12.0-16.0); LYMPHOCYTES # (AUTO) 0.4 X10'3 (1.1-4.8); LYMPHOCYTES % (AUTO) 4.7 % (21-51); MEAN CORPUSCULAR HEMOGLOBIN 29.2 PG (27.0-31.0); MEAN CORPUSCULAR HGB CONC 31.4 g/dL (33.0-36.5); MEAN CORPUSCULAR VOLUME 92.9 FL (78-98); MEAN PLATELET VOLUME 9.1 FL (7.4-10.4); MONOCYTES # (AUTO) 0.5 X10'3 (0-0.9); MONOCYTES % (AUTO) 6.6 % (2-12); NEUTROPHILS % (AUTO) 86.9 % (42-75); PLATELET COUNT 196 X10'3 (140-440); RED BLOOD COUNT 3.54 X10'6 (4.20-5.60); RED CELL DISTRIBUTION WIDTH 17.5 % (11.5-14.5); WHITE BLOOD COUNT 8.1 X10'3 (4.5-11.0)
[2021-05-18] MEDS: FLUoxetine 20mg capsule PO SCH (08:11)
[2021-05-18] MEDS: docusate sod 100mg capsule PO SCH ×2 (08:11→21:10)
[2021-05-18] MEDS: lactobacillus rhamnosus 10,000 MMU CELLS/CAPSULE PO SCH ×2 (08:12→21:10)
[2021-05-18] MEDS: atorvastatin 20mg tablet PO SCH (08:12)
[2021-05-18] MEDS: apixaban 2.5mg tablet PO SCH ×2 (08:12→21:10)
[2021-05-18] MEDS: pantoprazole 40mg Tablet.DR PO SCH (08:12)
[2021-05-18] MEDS: calcitriol 0.25mcg capsule PO SCH (08:12)
[2021-05-18] MEDS: carVEDilol 3.125mg tablet PO SCH ×2 (08:12→21:10)
[2021-05-18] MEDS: duloxetine 30mg CAPSULE.DR PO SCH (08:12)
[2021-05-18] MEDS: loratadine 10mg tablet PO SCH (08:12)
[2021-05-18] MEDS: sevelamer carbonate 800mg tablet PO SCH ×3 (08:12→18:23)
[2021-05-18] MEDS: dexamethasone 1mg tablet PO SCH ×2 (08:12→21:10)
[2021-05-18] MEDS: amiodarone 200mg tablet PO SCH ×2 (08:12→21:10)
[2021-05-18] MEDS: ipratropium/albuterol 3ml nebule NEB SCH ×5 (08:13→23:00)
[2021-05-18] MEDS: HYDROcodone/acetaminophen 10/325mg tab PO PRN ×3 (08:14→18:25)
[2021-05-18 08:34] LABS: D-DIMER 0.51 MG/L FEU (0-0.50)
[2021-05-18 08:47] LABS: ALANINE AMINOTRANSFERASE 9 U/L (12-78); ALBUMIN 2.5 G/DL (3.4-5.0); ALBUMIN/GLOBULIN RATIO 0.7 (1.1-1.5); ALKALINE PHOSPHATASE 117 IU/L (46-116); ANION GAP 8 (8-16); ASPARTATE AMINO TRANSFERASE 9 U/L (10-37); BILIRUBIN,TOTAL 0.4 MG/DL (0.1-1.0); BLOOD UREA NITROGEN 34 MG/DL (7-18); BUN/CREATININE RATIO 7.4 (6.6-38.0); C-REACTIVE PROTEIN 0.39 MG/DL (0.0-0.5); CALCIUM 8.9 MG/DL (8.5-10.1); CHLORIDE 100 MMOL/L (99-107); GLUCOSE 112 MG/DL (70-104); PHOSPHORUS 4.9 MG/DL (2.3-4.5); POTASSIUM 4.2 MMOL/L (3.5-5.1); SODIUM 138 MMOL/L (135-145); TOTAL PROTEIN 6.3 G/DL (6.4-8.2); eGFR 10 ML/MIN
[2021-05-18] MEDS: insulin Lispro (HumaLOG) vial - multi-dose SQ SCH ×3 (09:53→18:47)
[2021-05-18 11:15] VITALS: BP 121/68
[2021-05-18 18:00] VITALS: BP 155/84
--- NOTE | 2021-05-18 18:32 | NUR ---
Problems reprioritized. Patient report given, questions answered & plan of care reviewed with ELLIOTT VEGA.
[2021-05-18] MEDS: insulin glargine (Lantus) pen - multi-dose SQ SCH (21:10)
[2021-05-18] MEDS: gabapentin 100mg capsule PO SCH (21:10)
[2021-05-18] MEDS: temazepam 15mg capsule PO PRN (21:13)
[2021-05-18 22:00] VITALS: BP 118/71
[2021-05-19 02:00] VITALS: BP 143/86
[2021-05-19 06:17] VITALS: BP 152/87
[2021-05-19] MEDS: amiodarone 200mg tablet PO SCH (07:13)
[2021-05-19] MEDS: duloxetine 30mg CAPSULE.DR PO SCH (07:13)
[2021-05-19] MEDS: FLUoxetine 20mg capsule PO SCH (07:14)
[2021-05-19] MEDS: pantoprazole 40mg Tablet.DR PO SCH (07:14)
[2021-05-19] MEDS: lactobacillus rhamnosus 10,000 MMU CELLS/CAPSULE PO SCH (07:14)
[2021-05-19] MEDS: sevelamer carbonate 800mg tablet PO SCH ×2 (07:14→13:00)
[2021-05-19] MEDS: atorvastatin 20mg tablet PO SCH (07:14)
[2021-05-19] MEDS: docusate sod 100mg capsule PO SCH (07:14)
[2021-05-19] MEDS: calcitriol 0.25mcg capsule PO SCH (07:14)
[2021-05-19] MEDS: apixaban 2.5mg tablet PO SCH (07:14)
[2021-05-19] MEDS: dexamethasone 1mg tablet PO SCH (07:14)
[2021-05-19] MEDS: loratadine 10mg tablet PO SCH (07:14)
[2021-05-19] MEDS: carVEDilol 3.125mg tablet PO SCH (07:14)
[2021-05-19 07:26] LABS: BASOPHILS % (AUTO) 0.3 % (0-1); EOSINOPHILS # (AUTO) 0.1 X10'3 (0-0.9); EOSINOPHILS % (AUTO) 1.1 % (0-6); HEMATOCRIT 30.8 % (35.0-45.0); HEMOGLOBIN 9.9 g/dl (12.0-16.0); LYMPHOCYTES # (AUTO) 0.4 X10'3 (1.1-4.8); LYMPHOCYTES % (AUTO) 5.1 % (21-51); MEAN CORPUSCULAR HEMOGLOBIN 29.8 PG (27.0-31.0); MEAN CORPUSCULAR HGB CONC 32.2 g/dL (33.0-36.5); MEAN CORPUSCULAR VOLUME 92.5 FL (78-98); MEAN PLATELET VOLUME 8.9 FL (7.4-10.4); MONOCYTES # (AUTO) 0.4 X10'3 (0-0.9); MONOCYTES % (AUTO) 5.7 % (2-12); NEUTROPHILS # (AUTO) 6.4 X10'3 (1.8-7.7); NEUTROPHILS % (AUTO) 87.8 % (42-75); PLATELET COUNT 184 X10'3 (140-440); RED BLOOD COUNT 3.34 X10'6 (4.20-5.60); RED CELL DISTRIBUTION WIDTH 17.1 % (11.5-14.5); WHITE BLOOD COUNT 7.3 X10'3 (4.5-11.0)
[2021-05-19] MEDS: ipratropium/albuterol 3ml nebule NEB SCH ×3 (07:37→15:15)
[2021-05-19 07:57] LABS: ANION GAP 10 (8-16); BLOOD UREA NITROGEN 51 MG/DL (7-18); BUN/CREATININE RATIO 8.5 (6.6-38.0); CHLORIDE 98 MMOL/L (99-107); CREATININE 5.98 MG/DL (0.40-0.90); GLUCOSE 103 MG/DL (70-104); SODIUM 136 MMOL/L (135-145); TOTAL CARBON DIOXIDE 27.6 MMOL/L (24-32)
[2021-05-19 07:58] LABS: ALANINE AMINOTRANSFERASE 12 U/L (12-78); ALBUMIN 2.6 G/DL (3.4-5.0); ALBUMIN/GLOBULIN RATIO 0.7 (1.1-1.5); ALKALINE PHOSPHATASE 120 IU/L (46-116); ASPARTATE AMINO TRANSFERASE 12 U/L (10-37); BILIRUBIN,TOTAL 0.4 MG/DL (0.1-1.0); C-REACTIVE PROTEIN 0.34 MG/DL (0.0-0.5); CALCIUM 9.6 MG/DL (8.5-10.1); PHOSPHORUS 5.7 MG/DL (2.3-4.5); TOTAL PROTEIN 6.4 G/DL (6.4-8.2); eGFR 7 ML/MIN
[2021-05-19 08:17] LABS: D-DIMER 0.52 MG/L FEU (0-0.50)
[2021-05-19] MEDS ORDERED: EPOETIN ALFA-EPBX 20,000 UNIT/ML 1 ML MDV IV ONE (09:00)
[2021-05-19] MEDS ORDERED: normal saline 1000ml 250 ML IV PRN (09:00)
[2021-05-19] MEDS ORDERED: LIDOcaine 1% (10mg/ml) 2ml vial SQ ONE (09:00)
[2021-05-19] MEDS ORDERED: heparin 1,000 units/ml 10ml inj IV ONE (09:00)
[2021-05-19] MEDS: insulin Lispro (HumaLOG) vial - multi-dose SQ SCH (09:12)
[2021-05-19] MEDS: HYDROcodone/acetaminophen 10/325mg tab PO PRN ×2 (09:14→17:08)
[2021-05-19 10:00] VITALS: BP 124/78
[2021-05-19 15:41] VITALS: BP 108/70
--- NOTE | 2021-05-19 16:00 | NUR ---
REPORT GIVEN TO VERNELL VEGA AT [facility]. ALL QUESTIONS ANSWERED.
--- NOTE | 2021-05-19 17:57 | NUR ---
PT TRANSFERRED TO [facility]. ALL BELONGINGS IN HAND. IV IN PLACE. Addendum: 05/19/21 at 1758 by Shira English RN Amended: Links added.
== END 2021-05-19 17:30 | DRG 177 ==
LOC: ER 22:05 → ED HOLD 04-24 02:07 → ORTHO 4S 04-24 03:43
PROVIDERS: ADMIT Family Medicine; ATTEND Internal Medicine
PROC: 3E0234Z Introduction of Serum, Toxoid and Vaccine into Muscle, Percutaneous Approach (ICD-10-PCS; 2021-04-24)
PROC: 3E02340 Introduction of Influenza Vaccine into Muscle, Percutaneous Approach (ICD-10-PCS; 2021-04-24)
PROC: 5A1D70Z Performance of Urinary Filtration, Intermittent, Less than 6 Hours Per Day (ICD-10-PCS; 2021-04-24)
PROC: 5A0935A Assistance with Respiratory Ventilation, Less than 24 Consecutive Hours, High Flow/Velocity Cannula (ICD-10-PCS; principal; 2021-04-25)
PROC: 30233K1 Transfusion of Nonautologous Frozen Plasma into Peripheral Vein, Percutaneous Approach (ICD-10-PCS; 2021-04-26)
PROC: CB121ZZ Planar Nuclear Medicine Imaging of Lungs and Bronchi using Technetium 99m (Tc-99m) (ICD-10-PCS; 2021-04-26)
PROC: 5A0935A Assistance with Respiratory Ventilation, Less than 24 Consecutive Hours, High Flow/Velocity Cannula (ICD-10-PCS; 2021-04-27)
PROC: 5A1D70Z Performance of Urinary Filtration, Intermittent, Less than 6 Hours Per Day (ICD-10-PCS; 2021-04-27)
PROC: 5A0935A Assistance with Respiratory Ventilation, Less than 24 Consecutive Hours, High Flow/Velocity Cannula (ICD-10-PCS; 2021-04-28)
PROC: 5A1D70Z Performance of Urinary Filtration, Intermittent, Less than 6 Hours Per Day (ICD-10-PCS; 2021-04-29)
PROC: 5A1D70Z Performance of Urinary Filtration, Intermittent, Less than 6 Hours Per Day (ICD-10-PCS; 2021-05-01)
PROC: 5A1D70Z Performance of Urinary Filtration, Intermittent, Less than 6 Hours Per Day (ICD-10-PCS; 2021-05-04)
PROC: 5A0935A Assistance with Respiratory Ventilation, Less than 24 Consecutive Hours, High Flow/Velocity Cannula (ICD-10-PCS; 2021-05-05)
PROC: 5A0935A Assistance with Respiratory Ventilation, Less than 24 Consecutive Hours, High Flow/Velocity Cannula (ICD-10-PCS; 2021-05-06)
PROC: 5A1D70Z Performance of Urinary Filtration, Intermittent, Less than 6 Hours Per Day (ICD-10-PCS; 2021-05-06)
PROC: 5A0945A Assistance with Respiratory Ventilation, 24-96 Consecutive Hours, High Flow/Velocity Cannula (ICD-10-PCS; 2021-05-07)
PROC: 5A1D70Z Performance of Urinary Filtration, Intermittent, Less than 6 Hours Per Day (ICD-10-PCS; 2021-05-08)
PROC: 5A0945A Assistance with Respiratory Ventilation, 24-96 Consecutive Hours, High Flow/Velocity Cannula (ICD-10-PCS; 2021-05-10)
PROC: 5A1D70Z Performance of Urinary Filtration, Intermittent, Less than 6 Hours Per Day (ICD-10-PCS; 2021-05-10)
PROC: 5A0935A Assistance with Respiratory Ventilation, Less than 24 Consecutive Hours, High Flow/Velocity Cannula (ICD-10-PCS; 2021-05-12)
PROC: 5A1D70Z Performance of Urinary Filtration, Intermittent, Less than 6 Hours Per Day (ICD-10-PCS; 2021-05-12)
PROC: 5A0935A Assistance with Respiratory Ventilation, Less than 24 Consecutive Hours, High Flow/Velocity Cannula (ICD-10-PCS; 2021-05-13)
PROC: 5A1D70Z Performance of Urinary Filtration, Intermittent, Less than 6 Hours Per Day (ICD-10-PCS; 2021-05-14)
PROC: 5A1D70Z Performance of Urinary Filtration, Intermittent, Less than 6 Hours Per Day (ICD-10-PCS; 2021-05-17)
PROC: 5A0935A Assistance with Respiratory Ventilation, Less than 24 Consecutive Hours, High Flow/Velocity Cannula (ICD-10-PCS; 2021-05-19)
PROC: 5A1D70Z Performance of Urinary Filtration, Intermittent, Less than 6 Hours Per Day (ICD-10-PCS; 2021-05-19)
DX: U07.1 COVID-19 (principal); J12.82 Pneumonia due to coronavirus disease 2019; J96.01 Acute respiratory failure with hypoxia; N18.6 End stage renal disease; E87.1 Hypo-osmolality and hyponatremia; I47.2 Ventricular tachycardia; I13.2 Hypertensive heart and chronic kidney disease with heart failure and with stage 5 chronic kidney disease, or end stage renal disease; J44.0 Chronic obstructive pulmonary disease with (acute) lower respiratory infection; Q61.3 Polycystic kidney, unspecified; R04.2 Hemoptysis; Z94.0 Kidney transplant status; E66.01 Morbid (severe) obesity due to excess calories; E78.5 Hyperlipidemia, unspecified; E87.5 Hyperkalemia; F41.0 Panic disorder [episodic paroxysmal anxiety]; D63.1 Anemia in chronic kidney disease; E11.22 Type 2 diabetes mellitus with diabetic chronic kidney disease; Z99.2 Dependence on renal dialysis; R04.0 Epistaxis; I25.10 Atherosclerotic heart disease of native coronary artery without angina pectoris; R30.0 Dysuria; F32.A Depression, unspecified; R34 Anuria and oliguria; I48.0 Paroxysmal atrial fibrillation; S92.902A Unspecified fracture of left foot, initial encounter for closed fracture; X58.XXXA Exposure to other specified factors, initial encounter; I50.9 Heart failure, unspecified; Z79.01 Long term (current) use of anticoagulants; Z79.899 Other long term (current) drug therapy; I25.2 Old myocardial infarction; Z86.718 Personal history of other venous thrombosis and embolism; Z87.891 Personal history of nicotine dependence; Z98.61 Coronary angioplasty status; Z99.81 Dependence on supplemental oxygen; Z68.33 Body mass index [BMI] 33.0-33.9, adult; Z79.82 Long term (current) use of aspirin; Y93.89 Activity, other specified; Y92.89 Other specified places as the place of occurrence of the external cause; Y99.8 Other external cause status
CPT/HCPCS: 36415; 36430; 71250; 73600; 78582; 80048; 80053; 80061; 82728; 82948; 83036; 83540; 83550; 83735; 83880; 84100; 84145; 85008; 85025; 85027; 85379; 85610; 85730; 86140; 86885; 86900; 86901; 87070; 87081; 87088; 87340; 88108; 88305; 90732; 93005; 93306; 94640; 94760; 97110; 97116; 97161; 97530; 97535; 99285; A9539; A9540; G0257; G0378; J0456; J0696; J1100; J1644; J1650; J1815; J2001; J2270; J3430; J3490; J7030; J8540; P9059; Q0169; Q4081